=== PATIENT | female | born 1975 | race Caucasian/White ===

== ENCOUNTER 2016-07-27 14:20 | Inpatient (IN) | payer MEDICAID ==
[~2016-07-27] VITALS: Ht 157.5 cm; Wt 158.0 kg
[~2016-07-27 14:20] MED LIST: ALBU8.5H IH; DIVA500T35 PO; GABA-533 PO; GLIM2 PO; LURA40 PO; METF500T4 PO; PRAV40TA3 PO; SERT50TA12 PO; TOPI100 PO
[2016-07-27 16:40] LABS: BASOPHILS % (AUTO) 0.4 % (0.0-2.0); EOSINOPHILS % (AUTO) 1.1 % (1.0-6.0); HEMATOCRIT 46.3 % (36-46); LYMPHOCYTES # (AUTO) 3.2 K/uL (1.0-4.8); LYMPHOCYTES % (AUTO) 46.8 % (22.0-44.0); MEAN CORPUSCULAR HEMOGLOBIN 30.3 pg (26.0-34.0); MEAN CORPUSCULAR HGB CONC 32.4 G/dL (31.0-37.0); MEAN CORPUSCULAR VOLUME 94 fL (80-100); MONOCYTES # (AUTO) 0.3 K/uL (0.1-1.0); MONOCYTES % (AUTO) 4.8 % (2.0-9.0); NEUTROPHILS # (AUTO) 3.2 K/uL (1.8-7.7); NEUTROPHILS % (AUTO) 46.9 % (40.0-70.0); PLATELET COUNT (AUTO) 268 K/uL (150-450); RED BLOOD CELL COUNT(AUTO) 4.94 MIL/uL (4.00-5.20); RED CELL DISTRIBUTION WIDTH 13.8 % (11.5-14.5); WHITE BLOOD COUNT (AUTO) 6.8 K/uL (4.5-11.0)
[2016-07-27 16:54] LABS: ANION GAP 11 mmol/L (8-16); CALCIUM, TOTAL 8.6 mg/dL (8.8-10.5); CARBON DIOXIDE 25 mmol/L (22-29); CHLORIDE 104 mmol/L (98-107); CREATININE 0.85 mg/dL (0.60-1.30); GLOMERULAR FILTR. RATE CALC > 60 mL/min (>60); POTASSIUM 4.1 mmol/L (3.5-5.1); SODIUM SERUM 140 mmol/L (136-145); UREA NITROGEN, BLOOD 11 mg/dL (7-18)
[2016-07-27 16:57] LABS: SALICYLATE 3.5 mg/dL (2.8-20.0)
[2016-07-27 17:01] LABS: ALANINE AMINOTRANSFERASE 20 U/L (12-78); ALBUMIN 3.2 g/dL (3.4-5.0); ASPARTATE AMINOTRANSFERASE 11 U/L (15-37); BILIRUBIN,TOTAL 0.2 mg/dL (0.1-1.0)
[2016-07-27 17:15] LABS: ACETAMINOPHEN < 2 mcg/mL (10-30)
[2016-07-27 17:22] LABS: GLUCOSE,POINT OF CARE 90 MG/DL (70-110)
[2016-07-27 18:17] LABS: GLUCOSE,POINT OF CARE 86 MG/DL (70-110)
[2016-07-27 18:43] LABS: VALPROIC ACID 44 mcg/mL (50-100)
[2016-07-27 19:27] LABS: GLUCOSE,POINT OF CARE 90 MG/DL (70-110)
[2016-07-27 20:19] LABS: VALPROIC ACID 34 mcg/mL (50-100)
[2016-07-27 20:29] LABS: ACETAMINOPHEN < 2 mcg/mL (10-30)
[2016-07-27 20:54] LABS: SALICYLATE 3.8 mg/dL (2.8-20.0)
[2016-07-27 21:29] LABS: ANION GAP 7 mmol/L (8-16); CALCIUM, TOTAL 8.6 mg/dL (8.8-10.5); CARBON DIOXIDE 27 mmol/L (22-29); CHLORIDE 105 mmol/L (98-107); CREATININE 0.92 mg/dL (0.60-1.30); GLOMERULAR FILTR. RATE CALC > 60 mL/min (>60); POTASSIUM 3.9 mmol/L (3.5-5.1); SODIUM SERUM 139 mmol/L (136-145); UREA NITROGEN, BLOOD 13 mg/dL (7-18)
[2016-07-27 21:35] LABS: ALANINE AMINOTRANSFERASE 19 U/L (12-78); ALBUMIN 3.2 g/dL (3.4-5.0); ASPARTATE AMINOTRANSFERASE 11 U/L (15-37); BILIRUBIN,TOTAL 0.2 mg/dL (0.1-1.0); TOTAL PROTEIN, SERUM 6.9 g/dL (6.4-8.2)
[2016-07-27 21:37] LABS: GLUCOSE,POINT OF CARE 90 MG/DL (70-110)
[2016-07-27 21:38] LABS: LACTIC ACID 0.8 mmol/L (0.4-2.0)
[2016-07-27 22:31] LABS: GLUCOSE,POINT OF CARE 88 MG/DL (70-110)
[2016-07-27] MEDS ORDERED: HALOPERIDOL 5 MG TABLET PO PRN (23:15)
[2016-07-27] MEDS ORDERED: ZOLPIDEM TARTRATE 10 MG TABLET PO PRN (23:15)
[2016-07-27] MEDS ORDERED: LORazepam 2 MG TABLET PO PRN (23:15)
[2016-07-28 01:41] LABS: GLUCOSE,POINT OF CARE 96 MG/DL (70-110)
[2016-07-28 02:34] VITALS: BP 122/83
[2016-07-28 08:30] VITALS: BP 125/76
[2016-07-28] MEDS: ACETAMINOPHEN 325 MG TABLET PO PRN (14:00)
[2016-07-28 16:30] VITALS: BP 128/74
[2016-07-28] MEDS: MetFORMIN HCL 500 MG TABLET PO SCH (18:07)
[2016-07-28] MEDS ORDERED: OLANZapine 5 MG TABLET PO SCH (21:00)
[2016-07-28] MEDS: PRAVASTATIN SODIUM 40 MG TABLET PO SCH (21:14)
[2016-07-29 06:49] LABS: HEMOGLOBIN A1C 5.9 % (4.5-6.2)
[2016-07-29] MEDS: MetFORMIN HCL 500 MG TABLET PO SCH ×2 (06:58→17:51)
[2016-07-29] MEDS: GLIMEPIRIDE 2 MG TABLET PO SCH (06:58)
[2016-07-29 08:26] VITALS: BP 156/95
[2016-07-29] MEDS: FLUoxetine HCL 20 MG CAPSULE PO SCH (08:26)
[2016-07-29] MEDS: ACETAMINOPHEN 325 MG TABLET PO PRN ×2 (08:26→16:40)
[2016-07-29 10:15] LABS: CHOL/HDL RATIO 5.6 (3.9-5.7); THYROID STIMULATING HORMONE 2.14 uIU/mL (0.36-3.74)
[2016-07-29 13:32] LABS: GLUCOSE,POINT OF CARE 110 MG/DL (70-110)
[2016-07-29 16:06] LABS: GLUCOSE COMMENT 1 Received Meds; GLUCOSE,POINT OF CARE 115 MG/DL (70-110)
[2016-07-29 16:39] VITALS: BP 135/68
[2016-07-29 16:51] VITALS: BP 133/75
[2016-07-29] MEDS: OLANZapine 10 MG TABLET PO SCH (20:13)
[2016-07-29] MEDS: PRAVASTATIN SODIUM 40 MG TABLET PO SCH (20:13)
[2016-07-30 05:27] LABS: GLUCOSE,POINT OF CARE 103 MG/DL (70-110)
[2016-07-30] MEDS: MetFORMIN HCL 500 MG TABLET PO SCH ×2 (06:46→17:28)
[2016-07-30] MEDS: GLIMEPIRIDE 2 MG TABLET PO SCH (06:47)
[2016-07-30 08:00] VITALS: BP 105/62
[2016-07-30] MEDS: FLUoxetine HCL 20 MG CAPSULE PO SCH (09:40)
[2016-07-30] MEDS: ACETAMINOPHEN 325 MG TABLET PO PRN ×2 (12:04→20:11)
[2016-07-30 16:30] VITALS: BP 136/83
[2016-07-30 16:47] LABS: GLUCOSE COMMENT 1 Received Meds; GLUCOSE,POINT OF CARE 149 MG/DL (70-110)
[2016-07-30] MEDS ORDERED: FLUO-191 PO (18:01)
[2016-07-30] MEDS ORDERED: OLAN10TA3 PO (18:02)
[2016-07-30] MEDS: OLANZapine 10 MG TABLET PO SCH (20:10)
[2016-07-30] MEDS: PRAVASTATIN SODIUM 40 MG TABLET PO SCH (20:10)
[2016-07-30 20:12] VITALS: BP 130/78
[2016-07-31 05:27] LABS: GLUCOSE,POINT OF CARE 120 MG/DL (70-110)
[2016-07-31] MEDS: MetFORMIN HCL 500 MG TABLET PO SCH (07:02)
[2016-07-31] MEDS: GLIMEPIRIDE 2 MG TABLET PO SCH (07:02)
[2016-07-31 08:30] VITALS: BP 129/63
[2016-07-31] MEDS: FLUoxetine HCL 20 MG CAPSULE PO SCH (08:33)
[2016-07-31] MEDS: ACETAMINOPHEN 325 MG TABLET PO PRN (08:33)
== END 2016-07-31 14:45 | disposition home or self-care (01) | DRG 750 ==
LOC: EMS 14:23 → EEVIPCON 14:23 → 3EI 07-28 00:39 → EDUNIT# 07-28 00:39
PROVIDERS: ADMIT Psychiatry & Neurology Psychiatry; ATTEND Psychiatry & Neurology Psychiatry
DX: F25.0 Schizoaffective disorder, bipolar type (principal); R45.851 Suicidal ideations; F15.20 Other stimulant dependence, uncomplicated; Z68.44 Body mass index [BMI] 60.0-69.9, adult; E66.9 Obesity, unspecified; T43.212A Poisoning by selective serotonin and norepinephrine reuptake inhibitors, intentional self-harm, initial encounter; F41.9 Anxiety disorder, unspecified; E11.9 Type 2 diabetes mellitus without complications; F60.3 Borderline personality disorder; F32.9 Major depressive disorder, single episode, unspecified; J44.9 Chronic obstructive pulmonary disease, unspecified; G89.29 Other chronic pain; M54.9 Dorsalgia, unspecified; E78.5 Hyperlipidemia, unspecified; F17.200 Nicotine dependence, unspecified, uncomplicated; Z79.899 Other long term (current) drug therapy; Z59.0 Homelessness; Z88.2 Allergy status to sulfonamides; Z88.6 Allergy status to analgesic agent; Z62.819 Personal history of unspecified abuse in childhood; Y93.89 Activity, other specified; Y92.89 Other specified places as the place of occurrence of the external cause; Y99.8 Other external cause status; Z71.51 Drug abuse counseling and surveillance of drug abuser
CPT/HCPCS: 82962; 83036; 83605; 84443; 93005; 99285; G0480; G0481

== ENCOUNTER 2016-12-31 10:09 | Inpatient (IN) | payer MEDICAID, OTHER ==
[~2016-12-31] VITALS: Ht 167.6 cm; Wt 166.4 kg
[~2016-12-31 10:09] MED LIST changes: -ALBU8.5H IH; -DIVA500T35 PO; +FLUO-191 PO; -GABA-533 PO; -LURA40 PO; +OLAN10TA3 PO; -SERT50TA12 PO; -TOPI100 PO
[2016-12-31 10:53] LABS: BASOPHILS % (AUTO) 0.6 % (0.0-2.0); EOSINOPHILS % (AUTO) 0.9 % (1.0-6.0); HEMOGLOBIN 15.6 g/dL (12.0-16.0); LYMPHOCYTES # (AUTO) 2.6 K/uL (1.0-4.8); LYMPHOCYTES % (AUTO) 34.8 % (22.0-44.0); MEAN CORPUSCULAR HEMOGLOBIN 30.8 pg (26.0-34.0); MEAN CORPUSCULAR HGB CONC 33.9 G/dL (31.0-37.0); MEAN CORPUSCULAR VOLUME 91 fL (80-100); MONOCYTES # (AUTO) 0.5 K/uL (0.1-1.0); MONOCYTES % (AUTO) 6.2 % (2.0-9.0); NEUTROPHILS # (AUTO) 4.4 K/uL (1.8-7.7); NEUTROPHILS % (AUTO) 57.5 % (40.0-70.0); PLATELET COUNT (AUTO) 258 K/uL (150-450); RED BLOOD CELL COUNT(AUTO) 5.06 MIL/uL (4.00-5.20); RED CELL DISTRIBUTION WIDTH 13.4 % (11.5-14.5); WHITE BLOOD COUNT (AUTO) 7.6 K/uL (4.5-11.0)
[2016-12-31 11:07] LABS: SALICYLATE 3.9 mg/dL (2.8-20.0)
[2016-12-31 11:08] LABS: ANION GAP 11 mmol/L (8-16); CALCIUM, TOTAL 8.8 mg/dL (8.8-10.5); CARBON DIOXIDE 24 mmol/L (22-29); CHLORIDE 102 mmol/L (98-107); CREATININE 0.76 mg/dL (0.60-1.30); GLOMERULAR FILTR. RATE CALC > 60 mL/min (>60); POTASSIUM 3.8 mmol/L (3.5-5.1); SODIUM SERUM 137 mmol/L (136-145); UREA NITROGEN, BLOOD 13 mg/dL (7-18)
[2016-12-31 11:11] LABS: APPEARANCE,URINE CLOUDY (CLEAR); GLUCOSE, URINE (UA) NEGATIVE (NEGATIVE); KETONES,URINE NEGATIVE (NEGATIVE); LEUKOCYTE ESTERASE ,URINE NEGATIVE (NEGATIVE); OCCULT BLOOD,URINE NEGATIVE (NEGATIVE); PROTEIN,URINE TRACE (NEGATIVE)
[2016-12-31 11:14] LABS: ALANINE AMINOTRANSFERASE 29 U/L (12-78); ALBUMIN 3.3 g/dL (3.4-5.0); ASPARTATE AMINOTRANSFERASE 14 U/L (15-37); BILIRUBIN,TOTAL 0.5 mg/dL (0.1-1.0); TOTAL PROTEIN, SERUM 7.1 g/dL (6.4-8.2)
[2016-12-31 11:26] LABS: RBC,URINE 0-2 /HPF (0-2); SQUAMOUS EPITHELIAL CELL,UR Few /LPF (None Seen); WBC,URINE 0-2 /HPF (0-5)
[2016-12-31 11:33] LABS: ACETAMINOPHEN < 2 mcg/mL (10-30)
[2016-12-31 13:53] LABS: SALICYLATE 3.6 mg/dL (2.8-20.0)
[2016-12-31 14:10] LABS: ACETAMINOPHEN < 2 mcg/mL (10-30)
[2016-12-31] MEDS ORDERED: ZOLPIDEM TARTRATE 10 MG TABLET PO PRN (16:15)
[2016-12-31 19:23] LABS: GLUCOSE,POINT OF CARE 191 MG/DL (70-110)
[2016-12-31] MEDS ORDERED: DEXTROSE 50%-WATER 25 GM/50 ML SYRINGE IVP PRN (20:00)
[2016-12-31] MEDS ORDERED: PRAVASTATIN SODIUM 40 MG TABLET PO SCH (21:00)
[2016-12-31 21:52] VITALS: BP 135/76
[2017-01-01 05:27] LABS: GLUCOSE,POINT OF CARE 144 MG/DL (70-110)
[2017-01-01] MEDS: MetFORMIN HCL 500 MG TABLET PO SCH ×2 (06:49→16:39)
[2017-01-01] MEDS: INSULIN ASPART 100 UNITS/ML SQ PRN (06:50)
[2017-01-01 07:08] LABS: HEMOGLOBIN A1C 7.2 % (4.5-6.2)
[2017-01-01 07:22] LABS: CHOL/HDL RATIO 5.5 (3.9-5.7); THYROID STIMULATING HORMONE 2.04 uIU/mL (0.36-3.74)
[2017-01-01] MEDS ORDERED: GLIMEPIRIDE 2 MG TABLET PO SCH (07:30)
[2017-01-01 08:15] VITALS: BP 149/71
[2017-01-01] MEDS: TOPIRAMATE 100 MG TABLET PO SCH (16:38)
[2017-01-01] MEDS: ClonazePAM 0.5 MG TABLET PO SCH (16:39)
[2017-01-01] MEDS: DIVALPROEX SODIUM 500 MG DR TABLET PO SCH (16:39)
[2017-01-01 16:47] LABS: GLUCOSE COMMENT 1 FASTING; GLUCOSE COMMENT 2 Received Meds; GLUCOSE,POINT OF CARE 139 MG/DL (70-110)
[2017-01-01 18:41] VITALS: BP 135/77
[2017-01-01] MEDS: ROSUVASTATIN CALCIUM 10 MG TABLET PO SCH (20:24)
[2017-01-02 05:44] LABS: GLUCOSE COMMENT 1 Received Meds; GLUCOSE,POINT OF CARE 150 MG/DL (70-110)
[2017-01-02] MEDS: INSULIN ASPART 100 UNITS/ML SQ PRN (06:35)
[2017-01-02] MEDS: GLIMEPIRIDE 2 MG TABLET PO SCH (06:52)
[2017-01-02] MEDS: MetFORMIN HCL 500 MG TABLET PO SCH ×2 (06:52→17:14)
[2017-01-02 08:39] VITALS: BP 122/70
[2017-01-02] MEDS: ClonazePAM 0.5 MG TABLET PO SCH ×2 (10:07→17:14)
[2017-01-02] MEDS: DIVALPROEX SODIUM 500 MG DR TABLET PO SCH ×2 (10:07→17:14)
[2017-01-02] MEDS: CHOLECALCIFEROL (VIT D3) 1,000 UNITS TABLET PO SCH (10:07)
[2017-01-02] MEDS: SERTRALINE HCL 50 MG TABLET PO SCH (10:07)
[2017-01-02] MEDS: TOPIRAMATE 100 MG TABLET PO SCH ×2 (10:08→17:14)
[2017-01-02 16:21] VITALS: BP 139/66
[2017-01-02 17:28] LABS: GLUCOSE COMMENT 1 FASTING; GLUCOSE COMMENT 2 Received Meds; GLUCOSE,POINT OF CARE 116 MG/DL (70-110)
[2017-01-02] MEDS: ROSUVASTATIN CALCIUM 10 MG TABLET PO SCH (20:03)
[2017-01-03 05:27] LABS: GLUCOSE,POINT OF CARE 124 MG/DL (70-110)
[2017-01-03] MEDS: GLIMEPIRIDE 2 MG TABLET PO SCH (07:00)
[2017-01-03] MEDS: MetFORMIN HCL 500 MG TABLET PO SCH ×2 (07:00→17:33)
[2017-01-03] MEDS: INSULIN ASPART 100 UNITS/ML SQ PRN (07:04)
[2017-01-03 08:30] VITALS: BP 126/74
[2017-01-03] MEDS: ALBUTEROL SULFATE HFA 90 MCG/PUFF 8 GM INHALER IH PRN (09:18)
[2017-01-03] MEDS: CHOLECALCIFEROL (VIT D3) 1,000 UNITS TABLET PO SCH (09:19)
[2017-01-03] MEDS: TOPIRAMATE 100 MG TABLET PO SCH ×2 (09:19→17:34)
[2017-01-03] MEDS: SERTRALINE HCL 50 MG TABLET PO SCH (09:19)
[2017-01-03] MEDS: ClonazePAM 0.5 MG TABLET PO SCH ×2 (09:19→17:33)
[2017-01-03] MEDS: LORazepam 2 MG TABLET PO PRN (09:19)
[2017-01-03] MEDS: DIVALPROEX SODIUM 500 MG DR TABLET PO SCH ×2 (09:19→17:33)
[2017-01-03] MEDS: HALOPERIDOL 5 MG TABLET PO PRN (09:19)
[2017-01-03 16:24] VITALS: BP 128/82
[2017-01-03 17:17] LABS: GLUCOSE,POINT OF CARE 126 MG/DL (70-110)
[2017-01-03] MEDS: ROSUVASTATIN CALCIUM 10 MG TABLET PO SCH (21:08)
[2017-01-04 05:48] LABS: GLUCOSE,POINT OF CARE 132 MG/DL (70-110)
[2017-01-04] MEDS: MetFORMIN HCL 500 MG TABLET PO SCH ×2 (06:53→17:35)
[2017-01-04] MEDS: GLIMEPIRIDE 2 MG TABLET PO SCH (06:53)
[2017-01-04] MEDS: INSULIN ASPART 100 UNITS/ML SQ PRN (06:54)
[2017-01-04 08:15] VITALS: BP 110/60
[2017-01-04] MEDS: LORazepam 2 MG TABLET PO PRN (08:37)
[2017-01-04] MEDS: DIVALPROEX SODIUM 500 MG DR TABLET PO SCH ×2 (08:37→17:35)
[2017-01-04] MEDS: CHOLECALCIFEROL (VIT D3) 1,000 UNITS TABLET PO SCH (08:37)
[2017-01-04] MEDS: HALOPERIDOL 5 MG TABLET PO PRN (08:37)
[2017-01-04] MEDS: SERTRALINE HCL 50 MG TABLET PO SCH (08:37)
[2017-01-04] MEDS: TOPIRAMATE 100 MG TABLET PO SCH ×2 (08:38→17:35)
[2017-01-04] MEDS: ClonazePAM 0.5 MG TABLET PO SCH ×2 (09:52→17:35)
[2017-01-04 16:29] VITALS: BP 124/72
[2017-01-04 18:23] LABS: GLUCOSE,POINT OF CARE 119 MG/DL (70-110)
[2017-01-04] MEDS: ROSUVASTATIN CALCIUM 10 MG TABLET PO SCH (20:45)
[2017-01-05 05:30] VITALS: BP 129/89
[2017-01-05] MEDS: LORazepam 2 MG TABLET PO PRN ×3 (05:33→19:57)
[2017-01-05 05:52] LABS: GLUCOSE,POINT OF CARE 118 MG/DL (70-110)
[2017-01-05] MEDS: MetFORMIN HCL 500 MG TABLET PO SCH ×2 (07:05→16:58)
[2017-01-05] MEDS: GLIMEPIRIDE 2 MG TABLET PO SCH (07:05)
[2017-01-05] MEDS: INSULIN ASPART 100 UNITS/ML SQ PRN (07:08)
[2017-01-05] MEDS: NICOTINE 21 MG/24 HOUR PATCH TD SCH (08:43)
[2017-01-05] MEDS: TOPIRAMATE 100 MG TABLET PO SCH ×2 (08:43→16:23)
[2017-01-05] MEDS: ALBUTEROL SULFATE HFA 90 MCG/PUFF 8 GM INHALER IH PRN (08:43)
[2017-01-05] MEDS: SERTRALINE HCL 50 MG TABLET PO SCH (08:44)
[2017-01-05] MEDS: ClonazePAM 0.5 MG TABLET PO SCH ×2 (08:44→16:23)
[2017-01-05] MEDS: DIVALPROEX SODIUM 500 MG DR TABLET PO SCH ×2 (08:44→16:23)
[2017-01-05] MEDS: CHOLECALCIFEROL (VIT D3) 1,000 UNITS TABLET PO SCH (08:48)
[2017-01-05] MEDS: HALOPERIDOL 5 MG TABLET PO PRN ×2 (09:41→19:57)
[2017-01-05 13:14] VITALS: BP 124/82
[2017-01-05 16:34] VITALS: BP 112/85
[2017-01-05] MEDS ORDERED: ACETAMINOPHEN 325 MG TABLET PO PRN (19:15)
[2017-01-05] MEDS: ROSUVASTATIN CALCIUM 10 MG TABLET PO SCH (20:20)
[2017-01-06 05:57] LABS: GLUCOSE,POINT OF CARE 131 MG/DL (70-110)
[2017-01-06] MEDS: GLIMEPIRIDE 2 MG TABLET PO SCH (07:03)
[2017-01-06] MEDS: MetFORMIN HCL 500 MG TABLET PO SCH ×2 (07:04→18:03)
[2017-01-06] MEDS: SERTRALINE HCL 50 MG TABLET PO SCH (09:25)
[2017-01-06] MEDS: ClonazePAM 0.5 MG TABLET PO SCH ×2 (09:25→18:03)
[2017-01-06] MEDS: DIVALPROEX SODIUM 500 MG DR TABLET PO SCH ×2 (09:25→18:03)
[2017-01-06] MEDS: TOPIRAMATE 100 MG TABLET PO SCH ×2 (09:25→18:03)
[2017-01-06] MEDS: NICOTINE 21 MG/24 HOUR PATCH TD SCH (09:26)
[2017-01-06] MEDS: CHOLECALCIFEROL (VIT D3) 1,000 UNITS TABLET PO SCH (09:26)
[2017-01-06] MEDS: HALOPERIDOL 5 MG TABLET PO PRN (09:47)
[2017-01-06] MEDS: LORazepam 2 MG TABLET PO PRN (09:47)
[2017-01-06 11:20] VITALS: BP 114/65
[2017-01-06 17:07] VITALS: BP 119/74
[2017-01-06] MEDS: ROSUVASTATIN CALCIUM 10 MG TABLET PO SCH (21:32)
[2017-01-07] MEDS: LORazepam 2 MG TABLET PO PRN ×2 (01:50→10:46)
[2017-01-07 01:56] VITALS: BP 118/78
[2017-01-07 05:39] LABS: GLUCOSE COMMENT 1 Received Meds; GLUCOSE,POINT OF CARE 116 MG/DL (70-110)
[2017-01-07] MEDS: GLIMEPIRIDE 2 MG TABLET PO SCH (06:57)
[2017-01-07] MEDS: MetFORMIN HCL 500 MG TABLET PO SCH (06:58)
[2017-01-07] MEDS: INSULIN ASPART 100 UNITS/ML SQ PRN (07:02)
[2017-01-07 09:32] VITALS: BP 145/96
[2017-01-07] MEDS: DIVALPROEX SODIUM 500 MG DR TABLET PO SCH (10:46)
[2017-01-07] MEDS: ClonazePAM 0.5 MG TABLET PO SCH (10:46)
[2017-01-07] MEDS: NICOTINE 21 MG/24 HOUR PATCH TD SCH (10:46)
[2017-01-07] MEDS: TOPIRAMATE 100 MG TABLET PO SCH (10:47)
[2017-01-07] MEDS: SERTRALINE HCL 50 MG TABLET PO SCH (10:47)
[2017-01-07] MEDS: HALOPERIDOL 5 MG TABLET PO PRN (10:47)
[2017-01-07] MEDS: CHOLECALCIFEROL (VIT D3) 1,000 UNITS TABLET PO SCH (10:47)
[2017-01-07] MEDS: ALBUTEROL SULFATE HFA 90 MCG/PUFF 8 GM INHALER IH PRN (10:50)
[2017-01-07] MEDS ORDERED: DIVA500T35 PO (11:35)
[2017-01-07] MEDS ORDERED: VITAD1000 PO (11:35)
[2017-01-07] MEDS ORDERED: SERT50TA12 PO (11:35)
[2017-01-07] MEDS ORDERED: CLON.5 PO (11:35)
[2017-01-07] MEDS ORDERED: ROSU10 PO (11:35)
== END 2017-01-07 15:30 | disposition home or self-care (01) | DRG 750 ==
LOC: EMS 10:11 → 3EI 17:08
PROVIDERS: ADMIT Psychiatry & Neurology Psychiatry; ATTEND Psychiatry & Neurology Psychiatry
DX: F25.9 Schizoaffective disorder, unspecified (principal); R45.851 Suicidal ideations; Z68.43 Body mass index [BMI] 50.0-59.9, adult; E11.9 Type 2 diabetes mellitus without complications; E55.9 Vitamin D deficiency, unspecified; E78.00 Pure hypercholesterolemia, unspecified; E78.5 Hyperlipidemia, unspecified; E66.9 Obesity, unspecified; R26.9 Unspecified abnormalities of gait and mobility; T42.6X2A Poisoning by other antiepileptic and sedative-hypnotic drugs, intentional self-harm, initial encounter; Y92.89 Other specified places as the place of occurrence of the external cause; Z88.3 Allergy status to other anti-infective agents; Z88.2 Allergy status to sulfonamides
CPT/HCPCS: 51702; 74000; 82306; 82962; 83036; 84443; 93005; 99285; G0480; G0481; J3535

== ENCOUNTER 2018-10-20 18:30 | Inpatient (IN) | payer SELFPAY ==
[~2018-10-20] VITALS: Ht 170.2 cm; Wt 165.6 kg
[~2018-10-20 18:30] MED LIST changes: +CLON.5 PO; +DIVA-78 PO; -FLUO-191 PO; +METF-444 PO; -METF500T4 PO; -OLAN10TA3 PO; -PRAV40TA3 PO; +ROSU10TA22 PO; +SERT50TA12 PO; +VITAD1000 PO
[2018-10-20] MEDS ORDERED: ALBU8HFA IH (19:59)
[2018-10-20] MEDS ORDERED: LISI-660 PO (19:59)
[2018-10-20] MEDS ORDERED: ZIPR40CA2 PO (19:59)
[2018-10-20] MEDS ORDERED: VENL-67 PO (19:59)
[2018-10-20] MEDS ORDERED: ATOR10TA84 PO (19:59)
[2018-10-20 20:05] LABS: GLUCOSE,POINT OF CARE 132 MG/DL (70-110)
[2018-10-20 20:31] LABS: BASOPHILS % (AUTO) 0.5 % (0.0-2.0); EOSINOPHILS % (AUTO) 0.4 % (1.0-6.0); HEMATOCRIT 45.2 % (36-46); HEMOGLOBIN 14.9 g/dL (12.0-16.0); LYMPHOCYTES # (AUTO) 2.1 K/uL (1.0-4.8); LYMPHOCYTES % (AUTO) 22.2 % (22.0-44.0); MEAN CORPUSCULAR HEMOGLOBIN 30.2 pg (26.0-34.0); MEAN CORPUSCULAR HGB CONC 32.9 G/dL (31.0-37.0); MEAN CORPUSCULAR VOLUME 92 fL (80-100); MONOCYTES # (AUTO) 0.6 K/uL (0.1-1.0); NEUTROPHILS # (AUTO) 6.6 K/uL (1.8-7.7); NEUTROPHILS % (AUTO) 70.9 % (40.0-70.0); PLATELET COUNT (AUTO) 265 K/uL (150-450); RED BLOOD CELL COUNT(AUTO) 4.93 MIL/uL (4.00-5.20); RED CELL DISTRIBUTION WIDTH 13.1 % (11.5-14.5)
[2018-10-20] MEDS ORDERED: HYDROCODONE/ACETAMINOPHEN 10-325 MG TABLET PO ONE (20:45)
[2018-10-20] MEDS ORDERED: LORazepam 2 MG TABLET PO ONE (20:45)
[2018-10-20 20:46] LABS: ANION GAP 9 mmol/L (8-16); CALCIUM, TOTAL 9.9 mg/dL (8.8-10.5); CARBON DIOXIDE 26 mmol/L (22-29); CHLORIDE 101 mmol/L (98-107); CREATININE 0.98 mg/dL (0.60-1.30); GLOMERULAR FILTR. RATE CALC > 60 mL/min (>60); GLUCOSE,RANDOM 139 mg/dL (70-110); POTASSIUM 4.5 mmol/L (3.5-5.1); SODIUM SERUM 136 mmol/L (136-145); UREA NITROGEN, BLOOD 24 mg/dL (7-18)
[2018-10-20 20:51] LABS: ALANINE AMINOTRANSFERASE 27 U/L (12-78); ALBUMIN 3.8 g/dL (3.4-5.0); ALKALINE PHOSPHATASE 108 U/L (46-116); ASPARTATE AMINOTRANSFERASE 13 U/L (15-37); BILIRUBIN,TOTAL 0.3 mg/dL (0.1-1.0); TOTAL PROTEIN, SERUM 8.1 g/dL (6.4-8.2)
[2018-10-20 21:48] LABS: CHOL/HDL RATIO 3.9 (3.9-5.7); CHOLESTEROL 167 mg/dL (131-200); FREE T4 (FREE THYROXINE) 1.24 ng/dL (0.76-1.46); HDL CHOLESTEROL 43 mg/dL (40-60); LDL CHOL (CALC.) 107 mg/dL (0-130); THYROID STIMULATING HORMONE 1.22 uIU/mL (0.36-3.74); TRIGLYCERIDES 86 mg/dL (15-150)
[2018-10-20 22:29] LABS: AMPHET/METH SCREEN,URINE NEGATIVE (NEGATIVE); BARBITURATE SCREEN, URINE NEGATIVE (NEGATIVE); BENZODIAZEPINES SCREEN,URINE NEGATIVE (NEGATIVE); CANNABINOID SCREEN,URINE NEGATIVE (NEGATIVE); COCAINE SCREEN,URINE NEGATIVE (NEGATIVE); METHADONE SCREEN, URINE NEGATIVE (NEGATIVE); OPIATE SCREEN,URINE NEGATIVE (NEGATIVE)
[2018-10-20 22:30] LABS: PHENCYCLIDINE SCREEN,URINE NEGATIVE (NEGATIVE)
[2018-10-21 03:10] VITALS: BP 125/66
[2018-10-21] MEDS ORDERED: -PHARMACY VACCINE NOTE- MISC ONE (04:45)
[2018-10-21] MEDS: LORazepam 2 MG TABLET PO PRN ×2 (05:23→14:13)
[2018-10-21] MEDS ORDERED: LOPERAMIDE HCL 2 MG CAPSULE PO PRN (08:00)
[2018-10-21] MEDS ORDERED: BENZOCAINE/MENTHOL LOZENGE MM PRN (08:00)
[2018-10-21] MEDS ORDERED: DOCUSATE SODIUM 100 MG CAPSULE PO PRN (08:00)
[2018-10-21] MEDS ORDERED: MAG HYDROX/AL HYDROX/SIMETH ES 30 ML SUSPENSION UDCUP PO PRN (08:00)
[2018-10-21] MEDS ORDERED: CloNIDine HCL 0.1 MG TABLET PO PRN (08:00)
[2018-10-21] MEDS ORDERED: OMEPRAZOLE 20 MG CAPSULE PO PRN (08:00)
[2018-10-21] MEDS ORDERED: PETROLATUM,WHITE 28 GM JELLY TP PRN (08:00)
[2018-10-21] MEDS ORDERED: MAGNESIUM HYDROXIDE SUSPENSION 30 ML UDCUP PO PRN (08:00)
[2018-10-21] MEDS ORDERED: ONDANSETRON HCL 4 MG TABLET PO PRN (08:00)
[2018-10-21] MEDS ORDERED: BACITRACIN 28.4 GM OINTMENT TP PRN (08:00)
[2018-10-21] MEDS: LISINOPRIL 5 MG TABLET PO SCH (08:09)
[2018-10-21] MEDS: HALOPERIDOL 5 MG TABLET PO PRN ×2 (08:09→14:13)
[2018-10-21] MEDS: ATORVASTATIN CALCIUM 10 MG TABLET PO SCH (08:10)
[2018-10-21] MEDS: CHOLECALCIFEROL (VIT D3) 1,000 UNITS TABLET PO SCH (08:10)
[2018-10-21 08:22] VITALS: BP 136/79
[2018-10-21] MEDS: ALBUTEROL SULFATE HFA 90 MCG/PUFF 8 GM INHALER IH PRN (08:23)
[2018-10-21] MEDS: ZIPRASIDONE HCL 40 MG CAPSULE PO SCH (17:01)
[2018-10-21] MEDS: DIVALPROEX SODIUM 500 MG ER TABLET PO SCH (17:01)
[2018-10-21] MEDS: MetFORMIN HCL 500 MG TABLET PO SCH (17:01)
[2018-10-21] MEDS ORDERED: DEXTROSE 50%-WATER 25 GM/50 ML SYRINGE IVP PRN (20:15)
[2018-10-21 20:45] VITALS: BP 101/68
[2018-10-22 03:10] VITALS: BP 122/71
[2018-10-22] MEDS: LORazepam 2 MG TABLET PO PRN ×4 (03:12→19:07)
[2018-10-22 06:10] LABS: GLUCOMETER DEV NAME(LOC) 3E.I; GLUCOSE,POINT OF CARE 123 MG/DL (70-110)
[2018-10-22] MEDS: INSULIN LISPRO 100 UNITS/ML SQ PRN ×2 (06:39→13:36)
[2018-10-22] MEDS: ZIPRASIDONE HCL 40 MG CAPSULE PO SCH ×2 (07:02→17:09)
[2018-10-22] MEDS: MetFORMIN HCL 500 MG TABLET PO SCH ×2 (07:02→17:10)
[2018-10-22 08:00] VITALS: BP 133/90
[2018-10-22] MEDS: LISINOPRIL 5 MG TABLET PO SCH (08:03)
[2018-10-22] MEDS: CHOLECALCIFEROL (VIT D3) 1,000 UNITS TABLET PO SCH (08:03)
[2018-10-22] MEDS: SERTRALINE HCL 50 MG TABLET PO SCH (08:03)
[2018-10-22] MEDS: ALBUTEROL SULFATE HFA 90 MCG/PUFF 8 GM INHALER IH PRN (08:03)
[2018-10-22] MEDS: HALOPERIDOL 5 MG TABLET PO PRN ×3 (08:03→19:07)
[2018-10-22] MEDS: ATORVASTATIN CALCIUM 10 MG TABLET PO SCH (08:04)
[2018-10-22] MEDS: DIVALPROEX SODIUM 500 MG ER TABLET PO SCH ×2 (08:04→17:10)
[2018-10-22 11:34] LABS: GLUCOMETER DEV NAME(LOC) 3E.I; GLUCOSE,POINT OF CARE 115 MG/DL (70-110)
[2018-10-22 16:29] VITALS: BP 109/64
[2018-10-22 17:20] LABS: GLUCOMETER DEV NAME(LOC) 3E.I; GLUCOSE,POINT OF CARE 134 MG/DL (70-110)
[2018-10-22] MEDS: GABAPENTIN 300 MG CAPSULE PO SCH (18:48)
[2018-10-22] MEDS: NICOTINE 21 MG/24 HOUR PATCH TD SCH (18:48)
[2018-10-23 03:11] VITALS: BP 121/75
[2018-10-23] MEDS: HALOPERIDOL 5 MG TABLET PO PRN ×2 (03:14→12:55)
[2018-10-23] MEDS: LORazepam 2 MG TABLET PO PRN ×3 (03:14→12:55)
[2018-10-23 05:44] LABS: GLUCOMETER DEV NAME(LOC) 3E.I; GLUCOSE,POINT OF CARE 122 MG/DL (70-110)
[2018-10-23] MEDS: ZIPRASIDONE HCL 40 MG CAPSULE PO SCH ×2 (07:09→17:15)
[2018-10-23] MEDS: MetFORMIN HCL 500 MG TABLET PO SCH ×2 (07:09→17:15)
[2018-10-23] MEDS: ATORVASTATIN CALCIUM 10 MG TABLET PO SCH (08:23)
[2018-10-23] MEDS: SERTRALINE HCL 50 MG TABLET PO SCH (08:23)
[2018-10-23] MEDS: LISINOPRIL 5 MG TABLET PO SCH (08:23)
[2018-10-23] MEDS: CHOLECALCIFEROL (VIT D3) 1,000 UNITS TABLET PO SCH (08:23)
[2018-10-23] MEDS: GABAPENTIN 300 MG CAPSULE PO SCH ×3 (08:24→17:15)
[2018-10-23] MEDS: NICOTINE 21 MG/24 HOUR PATCH TD SCH (08:26)
[2018-10-23] MEDS: DIVALPROEX SODIUM 500 MG ER TABLET PO SCH ×2 (08:26→17:15)
[2018-10-23] MEDS: ACETAMINOPHEN 325 MG TABLET PO PRN (08:37)
[2018-10-23 08:38] VITALS: BP 108/71
[2018-10-23 12:09] LABS: GLUCOMETER DEV NAME(LOC) 3E.I; GLUCOSE,POINT OF CARE 88 MG/DL (70-110)
[2018-10-23 16:35] LABS: GLUCOMETER DEV NAME(LOC) 3E.I; GLUCOSE,POINT OF CARE 167 MG/DL (70-110)
[2018-10-23 17:00] VITALS: BP 130/72
[2018-10-23] MEDS: INSULIN LISPRO 100 UNITS/ML SQ PRN (17:35)
[2018-10-24] MEDS: HALOPERIDOL 5 MG TABLET PO PRN ×3 (01:51→17:01)
[2018-10-24] MEDS: LORazepam 2 MG TABLET PO PRN ×3 (01:51→16:24)
[2018-10-24 01:55] VITALS: BP 109/73
[2018-10-24] MEDS: ACETAMINOPHEN 325 MG TABLET PO PRN (01:56)
[2018-10-24 06:10] LABS: GLUCOMETER DEV NAME(LOC) 3E.I; GLUCOSE,POINT OF CARE 105 MG/DL (70-110)
[2018-10-24] MEDS: ZIPRASIDONE HCL 40 MG CAPSULE PO SCH ×2 (07:07→16:59)
[2018-10-24] MEDS: MetFORMIN HCL 500 MG TABLET PO SCH ×2 (07:07→16:59)
[2018-10-24] MEDS: ATORVASTATIN CALCIUM 10 MG TABLET PO SCH (09:54)
[2018-10-24] MEDS: SERTRALINE HCL 50 MG TABLET PO SCH (09:54)
[2018-10-24] MEDS: GABAPENTIN 300 MG CAPSULE PO SCH ×3 (09:54→16:25)
[2018-10-24] MEDS: CHOLECALCIFEROL (VIT D3) 1,000 UNITS TABLET PO SCH (09:54)
[2018-10-24] MEDS: DIVALPROEX SODIUM 500 MG ER TABLET PO SCH ×2 (09:54→16:25)
[2018-10-24] MEDS: LISINOPRIL 5 MG TABLET PO SCH (09:54)
[2018-10-24] MEDS: NICOTINE 21 MG/24 HOUR PATCH TD SCH (09:59)
[2018-10-24 11:34] LABS: GLUCOMETER DEV NAME(LOC) 3E.I; GLUCOSE,POINT OF CARE 164 MG/DL (70-110)
[2018-10-24] MEDS: INSULIN LISPRO 100 UNITS/ML SQ PRN (11:39)
[2018-10-24 17:10] LABS: GLUCOMETER DEV NAME(LOC) 3E.I; GLUCOSE,POINT OF CARE 115 MG/DL (70-110)
[2018-10-24 17:52] VITALS: BP 110/76
[2018-10-24 21:57] LABS: GLUCOMETER DEV NAME(LOC) 3E.I; GLUCOSE,POINT OF CARE 137 MG/DL (70-110)
[2018-10-25 00:23] VITALS: BP 127/84
[2018-10-25] MEDS: LORazepam 2 MG TABLET PO PRN ×4 (00:23→18:27)
[2018-10-25] MEDS: ACETAMINOPHEN 325 MG TABLET PO PRN (00:23)
[2018-10-25] MEDS: HALOPERIDOL 5 MG TABLET PO PRN ×4 (00:23→21:12)
[2018-10-25 05:50] LABS: GLUCOMETER DEV NAME(LOC) 3E.I; GLUCOSE,POINT OF CARE 132 MG/DL (70-110)
[2018-10-25] MEDS: ZIPRASIDONE HCL 40 MG CAPSULE PO SCH ×2 (06:57→16:57)
[2018-10-25] MEDS: MetFORMIN HCL 500 MG TABLET PO SCH ×2 (06:58→16:56)
[2018-10-25] MEDS: CHOLECALCIFEROL (VIT D3) 1,000 UNITS TABLET PO SCH (09:44)
[2018-10-25] MEDS: ATORVASTATIN CALCIUM 10 MG TABLET PO SCH (09:44)
[2018-10-25] MEDS: LISINOPRIL 5 MG TABLET PO SCH (09:44)
[2018-10-25] MEDS: SERTRALINE HCL 50 MG TABLET PO SCH (09:44)
[2018-10-25] MEDS: DIVALPROEX SODIUM 500 MG ER TABLET PO SCH ×2 (09:44→16:57)
[2018-10-25] MEDS: GABAPENTIN 300 MG CAPSULE PO SCH ×3 (09:45→16:56)
[2018-10-25] MEDS: NICOTINE 21 MG/24 HOUR PATCH TD SCH (09:51)
[2018-10-25 11:30] LABS: GLUCOMETER DEV NAME(LOC) 3E.I; GLUCOSE,POINT OF CARE 126 MG/DL (70-110)
[2018-10-25] MEDS: INSULIN LISPRO 100 UNITS/ML SQ PRN (11:34)
[2018-10-25 12:54] VITALS: BP 113/67
[2018-10-25 21:54] VITALS: BP 108/78
[2018-10-25 22:20] LABS: GLUCOMETER DEV NAME(LOC) 3E.I; GLUCOSE,POINT OF CARE 131 MG/DL (70-110)
[2018-10-26 02:50] VITALS: BP 134/84
[2018-10-26] MEDS: LORazepam 2 MG TABLET PO PRN ×3 (03:02→17:35)
[2018-10-26] MEDS: HALOPERIDOL 5 MG TABLET PO PRN ×2 (03:02→10:52)
[2018-10-26 06:20] LABS: GLUCOMETER DEV NAME(LOC) 3E.I; GLUCOSE,POINT OF CARE 103 MG/DL (70-110)
[2018-10-26] MEDS: MetFORMIN HCL 500 MG TABLET PO SCH ×2 (06:52→17:35)
[2018-10-26] MEDS: ZIPRASIDONE HCL 40 MG CAPSULE PO SCH ×2 (06:52→17:36)
[2018-10-26 09:30] VITALS: BP 110/67
[2018-10-26] MEDS: ATORVASTATIN CALCIUM 10 MG TABLET PO SCH (10:52)
[2018-10-26] MEDS: ALBUTEROL SULFATE HFA 90 MCG/PUFF 8 GM INHALER IH PRN (10:52)
[2018-10-26] MEDS: LISINOPRIL 5 MG TABLET PO SCH (10:52)
[2018-10-26] MEDS: CHOLECALCIFEROL (VIT D3) 1,000 UNITS TABLET PO SCH (10:52)
[2018-10-26] MEDS: GABAPENTIN 300 MG CAPSULE PO SCH ×3 (10:52→17:34)
[2018-10-26] MEDS: SERTRALINE HCL 50 MG TABLET PO SCH (10:53)
[2018-10-26] MEDS: NICOTINE 21 MG/24 HOUR PATCH TD SCH (10:53)
[2018-10-26] MEDS: DIVALPROEX SODIUM 500 MG ER TABLET PO SCH ×2 (10:54→17:35)
[2018-10-26 11:40] LABS: GLUCOMETER DEV NAME(LOC) 3E.I; GLUCOSE,POINT OF CARE 130 MG/DL (70-110)
[2018-10-26] MEDS: INSULIN LISPRO 100 UNITS/ML SQ PRN (11:44)
[2018-10-26 17:19] LABS: GLUCOMETER DEV NAME(LOC) 3E.I; GLUCOSE,POINT OF CARE 115 MG/DL (70-110)
[2018-10-26 17:47] VITALS: BP 140/68
[2018-10-26] MEDS: ZOLPIDEM TARTRATE 10 MG TABLET PO PRN (20:33)
[2018-10-26 20:39] LABS: GLUCOMETER DEV NAME(LOC) 3E.I; GLUCOSE,POINT OF CARE 95 MG/DL (70-110)
[2018-10-27 02:36] VITALS: BP 157/87
[2018-10-27] MEDS: LORazepam 2 MG TABLET PO PRN ×4 (02:40→22:44)
[2018-10-27] MEDS: HALOPERIDOL 5 MG TABLET PO PRN ×3 (02:40→13:24)
[2018-10-27 06:55] LABS: GLUCOMETER DEV NAME(LOC) 3E.I; GLUCOSE,POINT OF CARE 148 MG/DL (70-110)
[2018-10-27] MEDS: MetFORMIN HCL 500 MG TABLET PO SCH ×2 (07:05→17:01)
[2018-10-27] MEDS: ZIPRASIDONE HCL 40 MG CAPSULE PO SCH ×2 (07:05→17:01)
[2018-10-27] MEDS: INSULIN LISPRO 100 UNITS/ML SQ PRN ×2 (07:05→11:33)
[2018-10-27] MEDS: DIVALPROEX SODIUM 500 MG ER TABLET PO SCH ×2 (09:23→17:01)
[2018-10-27] MEDS: ATORVASTATIN CALCIUM 10 MG TABLET PO SCH (09:23)
[2018-10-27] MEDS: LISINOPRIL 5 MG TABLET PO SCH (09:23)
[2018-10-27] MEDS: GABAPENTIN 300 MG CAPSULE PO SCH ×3 (09:23→17:03)
[2018-10-27] MEDS: CHOLECALCIFEROL (VIT D3) 1,000 UNITS TABLET PO SCH (09:23)
[2018-10-27] MEDS: SERTRALINE HCL 50 MG TABLET PO SCH (09:23)
[2018-10-27] MEDS: ALBUTEROL SULFATE HFA 90 MCG/PUFF 8 GM INHALER IH PRN (09:26)
[2018-10-27] MEDS: NICOTINE 21 MG/24 HOUR PATCH TD SCH (09:29)
[2018-10-27 09:41] VITALS: BP 121/60
[2018-10-27 11:24] LABS: GLUCOMETER DEV NAME(LOC) 3E.I; GLUCOSE,POINT OF CARE 118 MG/DL (70-110)
[2018-10-27 12:46] VITALS: BP 120/68
[2018-10-27] MEDS: ACETAMINOPHEN 325 MG TABLET PO PRN (12:49)
[2018-10-27 16:24] LABS: GLUCOMETER DEV NAME(LOC) 3E.I; GLUCOSE,POINT OF CARE 140 MG/DL (70-110)
[2018-10-27 16:31] VITALS: BP 122/65
[2018-10-27 21:24] LABS: GLUCOMETER DEV NAME(LOC) 3E.I; GLUCOSE,POINT OF CARE 137 MG/DL (70-110)
[2018-10-27] MEDS: ZOLPIDEM TARTRATE 10 MG TABLET PO PRN (22:46)
[2018-10-28 03:35] VITALS: BP 130/90
[2018-10-28] MEDS: LORazepam 2 MG TABLET PO PRN ×3 (03:41→17:14)
[2018-10-28] MEDS: HALOPERIDOL 5 MG TABLET PO PRN ×4 (03:42→19:16)
[2018-10-28 06:20] LABS: GLUCOMETER DEV NAME(LOC) 3E.I; GLUCOSE,POINT OF CARE 121 MG/DL (70-110)
[2018-10-28] MEDS: MetFORMIN HCL 500 MG TABLET PO SCH ×2 (07:02→16:42)
[2018-10-28] MEDS: ZIPRASIDONE HCL 40 MG CAPSULE PO SCH ×2 (07:02→16:42)
[2018-10-28 08:01] VITALS: BP 137/83
[2018-10-28] MEDS: DIVALPROEX SODIUM 500 MG ER TABLET PO SCH ×2 (08:01→16:43)
[2018-10-28] MEDS: ACETAMINOPHEN 325 MG TABLET PO PRN ×2 (08:01→19:15)
[2018-10-28] MEDS: ATORVASTATIN CALCIUM 10 MG TABLET PO SCH (08:01)
[2018-10-28] MEDS: LISINOPRIL 5 MG TABLET PO SCH (08:01)
[2018-10-28] MEDS: GABAPENTIN 300 MG CAPSULE PO SCH ×3 (08:02→16:43)
[2018-10-28] MEDS: CHOLECALCIFEROL (VIT D3) 1,000 UNITS TABLET PO SCH (08:02)
[2018-10-28] MEDS: NICOTINE 21 MG/24 HOUR PATCH TD SCH (08:02)
[2018-10-28] MEDS: SERTRALINE HCL 50 MG TABLET PO SCH (08:02)
[2018-10-28 09:03] VITALS: BP 137/83
[2018-10-28 11:30] LABS: GLUCOMETER DEV NAME(LOC) 3E.I; GLUCOSE,POINT OF CARE 107 MG/DL (70-110)
[2018-10-28 17:02] VITALS: BP 118/78
[2018-10-28 17:24] LABS: GLUCOMETER DEV NAME(LOC) 3E.I; GLUCOSE,POINT OF CARE 136 MG/DL (70-110)
[2018-10-28 19:13] VITALS: BP 128/79
[2018-10-28] MEDS: ZOLPIDEM TARTRATE 10 MG TABLET PO PRN (20:44)
[2018-10-29 01:45] VITALS: BP 146/91
[2018-10-29] MEDS: LORazepam 2 MG TABLET PO PRN ×3 (01:49→17:17)
[2018-10-29 06:30] LABS: GLUCOMETER DEV NAME(LOC) 3E.I; GLUCOSE,POINT OF CARE 108 MG/DL (70-110)
[2018-10-29] MEDS: INSULIN LISPRO 100 UNITS/ML SQ PRN ×3 (06:42→17:18)
[2018-10-29] MEDS: ZIPRASIDONE HCL 40 MG CAPSULE PO SCH ×2 (06:42→17:18)
[2018-10-29] MEDS: MetFORMIN HCL 500 MG TABLET PO SCH ×2 (06:42→17:17)
[2018-10-29] MEDS: LISINOPRIL 5 MG TABLET PO SCH (08:53)
[2018-10-29] MEDS: SERTRALINE HCL 50 MG TABLET PO SCH (08:54)
[2018-10-29] MEDS: ATORVASTATIN CALCIUM 10 MG TABLET PO SCH (08:54)
[2018-10-29] MEDS: CHOLECALCIFEROL (VIT D3) 1,000 UNITS TABLET PO SCH (08:54)
[2018-10-29] MEDS: DIVALPROEX SODIUM 500 MG ER TABLET PO SCH ×2 (08:54→17:17)
[2018-10-29] MEDS: GABAPENTIN 300 MG CAPSULE PO SCH ×3 (08:54→17:17)
[2018-10-29] MEDS: NICOTINE 21 MG/24 HOUR PATCH TD SCH (08:54)
[2018-10-29 11:19] LABS: GLUCOMETER DEV NAME(LOC) 3E.I; GLUCOSE,POINT OF CARE 156 MG/DL (70-110)
[2018-10-29] MEDS: HALOPERIDOL 5 MG TABLET PO PRN ×2 (11:23→21:15)
[2018-10-29] MEDS ORDERED: LORazepam 2 MG/ML VIAL IM ONE (12:00)
[2018-10-29] MEDS ORDERED: HALOPERIDOL LACTATE 5 MG/ML VIAL IM ONE (12:00)
[2018-10-29] MEDS ORDERED: DiphenhydrAMINE HCL 50 MG/ML VIAL IM ONE (12:00)
[2018-10-29 16:19] LABS: GLUCOMETER DEV NAME(LOC) 3E.I; GLUCOSE,POINT OF CARE 177 MG/DL (70-110)
[2018-10-29 16:38] VITALS: BP 119/74
[2018-10-29 20:39] LABS: GLUCOMETER DEV NAME(LOC) 3E.I; GLUCOSE,POINT OF CARE 138 MG/DL (70-110)
[2018-10-29] MEDS: ZOLPIDEM TARTRATE 10 MG TABLET PO PRN (21:15)
[2018-10-30 04:40] VITALS: BP 151/89
[2018-10-30] MEDS: LORazepam 2 MG TABLET PO PRN ×3 (04:42→16:51)
[2018-10-30] MEDS: ACETAMINOPHEN 325 MG TABLET PO PRN (04:42)
[2018-10-30 05:56] LABS: GLUCOMETER DEV NAME(LOC) 3E.I; GLUCOSE,POINT OF CARE 100 MG/DL (70-110)
[2018-10-30] MEDS: MetFORMIN HCL 500 MG TABLET PO SCH ×2 (07:02→16:52)
[2018-10-30] MEDS: ZIPRASIDONE HCL 40 MG CAPSULE PO SCH ×2 (07:02→16:51)
[2018-10-30 09:00] VITALS: BP 123/70
[2018-10-30] MEDS: ATORVASTATIN CALCIUM 10 MG TABLET PO SCH (09:00)
[2018-10-30] MEDS: NICOTINE 21 MG/24 HOUR PATCH TD SCH (09:00)
[2018-10-30] MEDS: CHOLECALCIFEROL (VIT D3) 1,000 UNITS TABLET PO SCH (09:00)
[2018-10-30] MEDS: GABAPENTIN 300 MG CAPSULE PO SCH ×3 (09:00→16:51)
[2018-10-30] MEDS: DIVALPROEX SODIUM 500 MG ER TABLET PO SCH ×2 (09:00→16:51)
[2018-10-30] MEDS: LISINOPRIL 5 MG TABLET PO SCH (09:00)
[2018-10-30] MEDS: SERTRALINE HCL 50 MG TABLET PO SCH (09:00)
[2018-10-30] MEDS: HALOPERIDOL 5 MG TABLET PO PRN ×2 (11:43→20:56)
[2018-10-30 11:44] LABS: GLUCOMETER DEV NAME(LOC) 3E.I; GLUCOSE,POINT OF CARE 107 MG/DL (70-110)
[2018-10-30] MEDS: INSULIN LISPRO 100 UNITS/ML SQ PRN ×2 (12:09→17:36)
[2018-10-30 16:09] LABS: GLUCOMETER DEV NAME(LOC) 3E.I; GLUCOSE,POINT OF CARE 194 MG/DL (70-110)
[2018-10-30 20:14] LABS: GLUCOMETER DEV NAME(LOC) 3E.I; GLUCOSE,POINT OF CARE 126 MG/DL (70-110)
[2018-10-30] MEDS: ZOLPIDEM TARTRATE 10 MG TABLET PO PRN (20:56)
[2018-10-31 02:28] VITALS: BP 128/85
[2018-10-31] MEDS: HALOPERIDOL 5 MG TABLET PO PRN ×2 (02:28→06:57)
[2018-10-31] MEDS: LORazepam 2 MG TABLET PO PRN ×2 (02:28→06:57)
[2018-10-31] MEDS: ACETAMINOPHEN 325 MG TABLET PO PRN (02:31)
[2018-10-31 06:15] LABS: GLUCOMETER DEV NAME(LOC) 3E.I; GLUCOSE,POINT OF CARE 107 MG/DL (70-110)
[2018-10-31] MEDS: ZIPRASIDONE HCL 40 MG CAPSULE PO SCH (07:01)
[2018-10-31] MEDS: MetFORMIN HCL 500 MG TABLET PO SCH (07:01)
[2018-10-31] MEDS: ALBUTEROL SULFATE HFA 90 MCG/PUFF 8 GM INHALER IH PRN (10:01)
[2018-10-31] MEDS: CHOLECALCIFEROL (VIT D3) 1,000 UNITS TABLET PO SCH (10:09)
[2018-10-31] MEDS: GABAPENTIN 300 MG CAPSULE PO SCH ×2 (10:10→13:39)
[2018-10-31] MEDS: LISINOPRIL 5 MG TABLET PO SCH (10:10)
[2018-10-31] MEDS: SERTRALINE HCL 50 MG TABLET PO SCH (10:10)
[2018-10-31] MEDS: ATORVASTATIN CALCIUM 10 MG TABLET PO SCH (10:10)
[2018-10-31] MEDS: DIVALPROEX SODIUM 500 MG ER TABLET PO SCH (10:10)
[2018-10-31] MEDS: NICOTINE 21 MG/24 HOUR PATCH TD SCH (10:11)
[2018-10-31 12:00] LABS: GLUCOMETER DEV NAME(LOC) 3E.I; GLUCOSE,POINT OF CARE 176 MG/DL (70-110)
[2018-10-31] MEDS: INSULIN LISPRO 100 UNITS/ML SQ PRN (12:08)
[2018-10-31] MEDS ORDERED: ZIPR40CA2 PO (15:41)
[2018-10-31] MEDS ORDERED: GABA600T PO (15:43)
== END 2018-10-31 16:30 | disposition home or self-care (01) | DRG 885 ==
LOC: EMS 18:33 → 3EI 10-21 00:12
PROVIDERS: ADMIT Psychiatry & Neurology Psychiatry; ATTEND Psychiatry & Neurology Psychiatry
DX: F33.2 Major depressive disorder, recurrent severe without psychotic features (principal); R45.851 Suicidal ideations; E11.9 Type 2 diabetes mellitus without complications; E78.00 Pure hypercholesterolemia, unspecified; F20.9 Schizophrenia, unspecified; F41.9 Anxiety disorder, unspecified; I10 Essential (primary) hypertension; Z59.0 Homelessness; Z91.5 Personal history of self-harm; Z88.5 Allergy status to narcotic agent; Z88.2 Allergy status to sulfonamides; Z79.899 Other long term (current) drug therapy
CPT/HCPCS: 83036; 84439; 84443; G0480; J1200; J1630; J2060; J3535

== ENCOUNTER 2018-11-07 18:16 | Inpatient (IN) | payer MEDICAID, OTHER ==
[~2018-11-07] VITALS: Ht 170.2 cm; Wt 166.0 kg
[~2018-11-07 18:16] MED LIST changes: +ATOR10TA84 PO; -CLON.5 PO; +GABA600T PO; -GLIM2 PO; +LISI-660 PO; -ROSU10TA22 PO; +ZIPR40CA2 PO
[2018-11-07] MEDS ORDERED: ZIPR20CA2 PO (18:38)
[2018-11-07] MEDS ORDERED: GABA-529 PO (18:38)
[2018-11-07] MEDS ORDERED: METF-960 PO (18:38)
[2018-11-07] MEDS ORDERED: ATOR10TA84 PO (18:38)
[2018-11-07] MEDS ORDERED: VENL25TA47 PO (18:38)
[2018-11-07 18:53] LABS: EOSINOPHILS % (AUTO) 1.3 % (1.0-6.0); HEMATOCRIT 40.3 % (36-46); HEMOGLOBIN 13.4 g/dL (12.0-16.0); LYMPHOCYTES # (AUTO) 2.2 K/uL (1.0-4.8); LYMPHOCYTES % (AUTO) 32.7 % (22.0-44.0); MEAN CORPUSCULAR HEMOGLOBIN 30.6 pg (26.0-34.0); MEAN CORPUSCULAR HGB CONC 33.2 G/dL (31.0-37.0); MEAN CORPUSCULAR VOLUME 92 fL (80-100); MONOCYTES # (AUTO) 0.5 K/uL (0.1-1.0); MONOCYTES % (AUTO) 7.2 % (2.0-9.0); NEUTROPHILS % (AUTO) 57.8 % (40.0-70.0); PLATELET COUNT (AUTO) 277 K/uL (150-450); RED BLOOD CELL COUNT(AUTO) 4.37 MIL/uL (4.00-5.20); RED CELL DISTRIBUTION WIDTH 13.3 % (11.5-14.5)
[2018-11-07 19:05] LABS: ANION GAP 7 mmol/L (8-16); CARBON DIOXIDE 29 mmol/L (22-29); CHLORIDE 106 mmol/L (98-107); CREATININE 0.89 mg/dL (0.60-1.30); GLOMERULAR FILTR. RATE CALC > 60 mL/min (>60); GLUCOSE,RANDOM 139 mg/dL (70-110); POTASSIUM 4.3 mmol/L (3.5-5.1); SODIUM SERUM 142 mmol/L (136-145); UREA NITROGEN, BLOOD 15 mg/dL (7-18)
[2018-11-07 19:19] LABS: ALANINE AMINOTRANSFERASE 23 U/L (12-78); ALBUMIN 3.3 g/dL (3.4-5.0); ALKALINE PHOSPHATASE 89 U/L (46-116); ASPARTATE AMINOTRANSFERASE 11 U/L (15-37); BILIRUBIN,TOTAL 0.1 mg/dL (0.1-1.0); HCG,QUANTITATIVE < 1 mIU/mL (0-6); TOTAL PROTEIN, SERUM 7.3 g/dL (6.4-8.2)
[2018-11-07 19:22] LABS: ACETAMINOPHEN < 2 mcg/mL (10-30)
[2018-11-07 19:48] LABS: SALICYLATE 4.6 mg/dL (2.8-20.0)
[2018-11-07 20:12] LABS: VALPROIC ACID 22 mcg/mL (50-100)
[2018-11-07] MEDS ORDERED: ACETAMINOPHEN 325 MG TABLET PO ONE (20:15)
[2018-11-07 20:17] LABS: BARBITURATE SCREEN, URINE NEGATIVE (NEGATIVE); BENZODIAZEPINES SCREEN,URINE NEGATIVE (NEGATIVE); CANNABINOID SCREEN,URINE NEGATIVE (NEGATIVE); COCAINE SCREEN,URINE NEGATIVE (NEGATIVE); OPIATE SCREEN,URINE NEGATIVE (NEGATIVE)
[2018-11-07 20:20] LABS: PHENCYCLIDINE SCREEN,URINE NEGATIVE (NEGATIVE)
[2018-11-07] MEDS ORDERED: ACETAMINOPHEN 325 MG TABLET ONE (20:29)
[2018-11-07 20:38] LABS: AMPHET/METH SCREEN,URINE POSITIVE (NEGATIVE); METHADONE SCREEN, URINE NEGATIVE (NEGATIVE)
[2018-11-08] MEDS ORDERED: HALOPERIDOL 5 MG TABLET PO PRN (07:15)
[2018-11-08] MEDS ORDERED: ACETAMINOPHEN 325 MG TABLET PO ONE (07:45)
[2018-11-08] MEDS: LORazepam 2 MG TABLET PO PRN ×2 (09:37→17:00)
[2018-11-08] MEDS ORDERED: CloNIDine HCL 0.1 MG TABLET PO PRN (14:00)
[2018-11-08] MEDS ORDERED: ONDANSETRON HCL 4 MG TABLET PO PRN (14:00)
[2018-11-08] MEDS ORDERED: ALBUTEROL SULFATE HFA 90 MCG/PUFF 8 GM INHALER IH PRN (14:00)
[2018-11-08] MEDS ORDERED: BENZOCAINE/MENTHOL LOZENGE MM PRN (14:00)
[2018-11-08] MEDS ORDERED: LOPERAMIDE HCL 2 MG CAPSULE PO PRN (14:00)
[2018-11-08] MEDS ORDERED: DEXTROSE 50%-WATER 25 GM/50 ML SYRINGE IVP PRN (14:00)
[2018-11-08] MEDS ORDERED: PETROLATUM,WHITE 28 GM JELLY TP PRN (14:00)
[2018-11-08] MEDS ORDERED: MAG HYDROX/AL HYDROX/SIMETH ES 30 ML SUSPENSION UDCUP PO PRN (14:00)
[2018-11-08] MEDS ORDERED: MAGNESIUM HYDROXIDE SUSPENSION 30 ML UDCUP PO PRN (14:00)
[2018-11-08] MEDS ORDERED: BACITRACIN 28.4 GM OINTMENT TP PRN (14:00)
[2018-11-08 14:18] VITALS: BP 143/91
[2018-11-08 16:05] VITALS: BP 132/92
[2018-11-08] MEDS: ACETAMINOPHEN 325 MG TABLET PO PRN (16:06)
[2018-11-08] MEDS: DIVALPROEX SODIUM 500 MG DR TABLET PO SCH (16:07)
[2018-11-08] MEDS: INSULIN LISPRO 100 UNITS/ML SQ PRN (16:47)
[2018-11-08] MEDS: MetFORMIN HCL 500 MG TABLET PO SCH ×2 (17:01→17:02)
[2018-11-08] MEDS: ZIPRASIDONE HCL 40 MG CAPSULE PO SCH (17:43)
[2018-11-09] MEDS: ACETAMINOPHEN 325 MG TABLET PO PRN ×3 (00:55→16:21)
[2018-11-09 00:56] VITALS: BP 131/84
[2018-11-09 05:34] LABS: GLUCOMETER DEV NAME(LOC) 3E.I; GLUCOSE,POINT OF CARE 121 MG/DL (70-110)
[2018-11-09] MEDS: MetFORMIN HCL 500 MG TABLET PO SCH ×4 (06:37→16:20)
[2018-11-09] MEDS: ZIPRASIDONE HCL 40 MG CAPSULE PO SCH ×2 (06:37→16:20)
[2018-11-09 08:05] VITALS: BP 138/76
[2018-11-09] MEDS: DOCUSATE SODIUM 100 MG CAPSULE PO SCH (08:11)
[2018-11-09] MEDS: DIVALPROEX SODIUM 500 MG DR TABLET PO SCH ×2 (08:11→16:20)
[2018-11-09] MEDS: ATORVASTATIN CALCIUM 10 MG TABLET PO SCH (08:11)
[2018-11-09] MEDS: OMEPRAZOLE 20 MG CAPSULE PO SCH (08:11)
[2018-11-09] MEDS: SERTRALINE HCL 50 MG TABLET PO SCH (08:13)
[2018-11-09] MEDS: LISINOPRIL 5 MG TABLET PO SCH (08:13)
[2018-11-09 08:16] VITALS: BP 136/78
[2018-11-09 09:16] VITALS: BP 122/60
[2018-11-09 11:49] LABS: GLUCOMETER DEV NAME(LOC) 3E.I; GLUCOSE,POINT OF CARE 115 MG/DL (70-110)
[2018-11-09] MEDS: INSULIN LISPRO 100 UNITS/ML SQ PRN (13:04)
[2018-11-09 17:01] VITALS: BP 123/81
[2018-11-09 17:20] LABS: GLUCOMETER DEV NAME(LOC) 3E.I; GLUCOSE,POINT OF CARE 135 MG/DL (70-110)
[2018-11-09 21:24] LABS: GLUCOMETER DEV NAME(LOC) 3E.I; GLUCOSE,POINT OF CARE 96 MG/DL (70-110)
[2018-11-10 00:50] VITALS: BP 136/64
[2018-11-10] MEDS: ZOLPIDEM TARTRATE 10 MG TABLET PO PRN ×2 (00:53→20:30)
[2018-11-10] MEDS: LORazepam 2 MG TABLET PO PRN ×2 (00:53→10:15)
[2018-11-10] MEDS: ACETAMINOPHEN 325 MG TABLET PO PRN ×3 (00:53→20:30)
[2018-11-10 05:42] LABS: GLUCOMETER DEV NAME(LOC) 3E.I; GLUCOSE,POINT OF CARE 108 MG/DL (70-110)
[2018-11-10] MEDS: INSULIN LISPRO 100 UNITS/ML SQ PRN (06:43)
[2018-11-10] MEDS: MetFORMIN HCL 500 MG TABLET PO SCH ×4 (06:51→17:20)
[2018-11-10] MEDS: ZIPRASIDONE HCL 40 MG CAPSULE PO SCH ×2 (06:52→16:32)
[2018-11-10 08:18] VITALS: BP 107/71
[2018-11-10] MEDS: ATORVASTATIN CALCIUM 10 MG TABLET PO SCH (08:54)
[2018-11-10] MEDS: DIVALPROEX SODIUM 500 MG DR TABLET PO SCH ×2 (08:56→16:32)
[2018-11-10] MEDS: DOCUSATE SODIUM 100 MG CAPSULE PO SCH (08:56)
[2018-11-10] MEDS: OMEPRAZOLE 20 MG CAPSULE PO SCH (08:56)
[2018-11-10] MEDS: LISINOPRIL 5 MG TABLET PO SCH (09:00)
[2018-11-10] MEDS: SERTRALINE HCL 50 MG TABLET PO SCH (09:01)
[2018-11-10 10:16] VITALS: BP 107/71
[2018-11-10 11:18] LABS: GLUCOMETER DEV NAME(LOC) 3EX.; GLUCOSE,POINT OF CARE 160 MG/DL (70-110)
[2018-11-10 18:04] VITALS: BP 136/70
[2018-11-10 23:44] LABS: GLUCOMETER DEV NAME(LOC) 3EX.; GLUCOSE,POINT OF CARE 157 MG/DL (70-110)
[2018-11-11 01:20] VITALS: BP 115/69
[2018-11-11] MEDS: LORazepam 2 MG TABLET PO PRN ×2 (01:25→17:04)
[2018-11-11] MEDS: ACETAMINOPHEN 325 MG TABLET PO PRN (01:26)
[2018-11-11 05:54] LABS: GLUCOMETER DEV NAME(LOC) 3E.I; GLUCOSE,POINT OF CARE 107 MG/DL (70-110)
[2018-11-11] MEDS: MetFORMIN HCL 500 MG TABLET PO SCH ×4 (06:30→17:03)
[2018-11-11] MEDS: ZIPRASIDONE HCL 40 MG CAPSULE PO SCH ×2 (06:45→17:02)
[2018-11-11] MEDS: DOCUSATE SODIUM 100 MG CAPSULE PO SCH (08:43)
[2018-11-11] MEDS: SERTRALINE HCL 50 MG TABLET PO SCH (08:43)
[2018-11-11] MEDS: ATORVASTATIN CALCIUM 10 MG TABLET PO SCH (08:43)
[2018-11-11] MEDS: OMEPRAZOLE 20 MG CAPSULE PO SCH (08:43)
[2018-11-11] MEDS: DIVALPROEX SODIUM 500 MG DR TABLET PO SCH ×2 (08:43→17:02)
[2018-11-11] MEDS: LISINOPRIL 5 MG TABLET PO SCH (08:47)
[2018-11-11 08:49] VITALS: BP 133/60
[2018-11-11 11:19] LABS: GLUCOMETER DEV NAME(LOC) 3EX.; GLUCOSE,POINT OF CARE 155 MG/DL (70-110)
[2018-11-11] MEDS: INSULIN LISPRO 100 UNITS/ML SQ PRN ×3 (11:36→22:27)
[2018-11-11 16:18] LABS: GLUCOMETER DEV NAME(LOC) 3EX.; GLUCOSE,POINT OF CARE 156 MG/DL (70-110)
[2018-11-11 16:49] VITALS: BP 121/67
[2018-11-11] MEDS: ZOLPIDEM TARTRATE 10 MG TABLET PO PRN (20:31)
[2018-11-11 20:39] LABS: GLUCOMETER DEV NAME(LOC) 3EX.; GLUCOSE,POINT OF CARE 133 MG/DL (70-110)
[2018-11-12 00:37] VITALS: BP 116/94
[2018-11-12] MEDS: LORazepam 2 MG TABLET PO PRN ×2 (00:40→09:18)
[2018-11-12] MEDS: ACETAMINOPHEN 325 MG TABLET PO PRN ×2 (00:46→09:19)
[2018-11-12 05:39] LABS: GLUCOMETER DEV NAME(LOC) 3EX.; GLUCOSE,POINT OF CARE 99 MG/DL (70-110)
[2018-11-12] MEDS: ZIPRASIDONE HCL 40 MG CAPSULE PO SCH (06:43)
[2018-11-12] MEDS: MetFORMIN HCL 500 MG TABLET PO SCH ×2 (06:43)
[2018-11-12] MEDS: SERTRALINE HCL 50 MG TABLET PO SCH (09:06)
[2018-11-12] MEDS: OMEPRAZOLE 20 MG CAPSULE PO SCH (09:06)
[2018-11-12] MEDS: ATORVASTATIN CALCIUM 10 MG TABLET PO SCH (09:06)
[2018-11-12] MEDS: DIVALPROEX SODIUM 500 MG DR TABLET PO SCH (09:06)
[2018-11-12] MEDS: LISINOPRIL 5 MG TABLET PO SCH (09:18)
[2018-11-12 09:19] VITALS: BP 120/60
[2018-11-12] MEDS: DOCUSATE SODIUM 100 MG CAPSULE PO SCH (09:19)
[2018-11-12 11:19] LABS: GLUCOMETER DEV NAME(LOC) 3EX.; GLUCOSE,POINT OF CARE 105 MG/DL (70-110)
[2018-11-12] MEDS ORDERED: DSS100 PO (13:25)
== END 2018-11-12 13:40 | disposition home or self-care (01) | DRG 750 ==
LOC: EMS 18:16 → 3EX 11-08 12:54
PROVIDERS: ADMIT Psychiatry & Neurology Psychiatry; ATTEND Psychiatry & Neurology Psychiatry
DX: F25.9 Schizoaffective disorder, unspecified (principal); E11.9 Type 2 diabetes mellitus without complications; E78.00 Pure hypercholesterolemia, unspecified; F31.9 Bipolar disorder, unspecified; I10 Essential (primary) hypertension; F17.210 Nicotine dependence, cigarettes, uncomplicated; Z88.6 Allergy status to analgesic agent; Z88.2 Allergy status to sulfonamides; Z79.84 Long term (current) use of oral hypoglycemic drugs; Z79.899 Other long term (current) drug therapy
CPT/HCPCS: 83735; 87081; 93005; 99291; G0378; G0480; G0481; J3535

== ENCOUNTER 2018-11-16 18:17 | Inpatient (IN) | payer MEDICAID, OTHER ==
[~2018-11-16] VITALS: Ht 167.6 cm; Wt 161.7 kg
[~2018-11-16 18:17] MED LIST changes: +DSS100 PO; -GABA600T PO; -METF-444 PO; +METF-960 PO; -VITAD1000 PO
[2018-11-16] MEDS ORDERED: OMEP10 PO (18:44)
[2018-11-16] MEDS ORDERED: VENL25TA47 PO (18:44)
[2018-11-16 19:09] LABS: GLUCOSE,POINT OF CARE 257 MG/DL (70-110)
[2018-11-16 19:27] LABS: BASOPHILS % (AUTO) 0.4 % (0.0-2.0); EOSINOPHILS % (AUTO) 1.2 % (1.0-6.0); HEMATOCRIT 40.5 % (36-46); HEMOGLOBIN 13.3 g/dL (12.0-16.0); LYMPHOCYTES # (AUTO) 1.3 K/uL (1.0-4.8); LYMPHOCYTES % (AUTO) 17.4 % (22.0-44.0); MEAN CORPUSCULAR HEMOGLOBIN 29.9 pg (26.0-34.0); MEAN CORPUSCULAR HGB CONC 32.8 G/dL (31.0-37.0); MEAN CORPUSCULAR VOLUME 91 fL (80-100); MONOCYTES # (AUTO) 0.4 K/uL (0.1-1.0); MONOCYTES % (AUTO) 5.6 % (2.0-9.0); NEUTROPHILS # (AUTO) 5.6 K/uL (1.8-7.7); NEUTROPHILS % (AUTO) 75.4 % (40.0-70.0); PLATELET COUNT (AUTO) 223 K/uL (150-450); RED BLOOD CELL COUNT(AUTO) 4.44 MIL/uL (4.00-5.20)
[2018-11-16 19:37] LABS: ANION GAP 9 mmol/L (8-16); CALCIUM, TOTAL 8.5 mg/dL (8.8-10.5); CARBON DIOXIDE 24 mmol/L (22-29); CHLORIDE 105 mmol/L (98-107); CREATININE 0.93 mg/dL (0.60-1.30); GLOMERULAR FILTR. RATE CALC > 60 mL/min (>60); GLUCOSE,RANDOM 219 mg/dL (70-110); POTASSIUM 3.5 mmol/L (3.5-5.1); SODIUM SERUM 138 mmol/L (136-145); UREA NITROGEN, BLOOD 14 mg/dL (7-18)
[2018-11-16 19:44] LABS: ALANINE AMINOTRANSFERASE 15 U/L (12-78); ALKALINE PHOSPHATASE 90 U/L (46-116); ASPARTATE AMINOTRANSFERASE 5 U/L (15-37); BILIRUBIN,TOTAL 0.3 mg/dL (0.1-1.0); TOTAL PROTEIN, SERUM 6.7 g/dL (6.4-8.2); VALPROIC ACID 25 mcg/mL (50-100)
[2018-11-16 19:52] LABS: SALICYLATE 3.3 mg/dL (2.8-20.0)
[2018-11-16 19:58] LABS: ACETAMINOPHEN < 2 mcg/mL (10-30)
[2018-11-16 20:04] LABS: LACTIC ACID 3.5 mmol/L (0.4-2.0)
[2018-11-17 02:13] LABS: HCG,QUANTITATIVE < 1 mIU/mL (0-6)
[2018-11-17 04:11] VITALS: BP 130/82
[2018-11-17] MEDS ORDERED: LOPERAMIDE HCL 2 MG CAPSULE PO PRN (07:30)
[2018-11-17] MEDS ORDERED: MetFORMIN HCL 500 MG TABLET PO SCH (07:30)
[2018-11-17] MEDS ORDERED: ONDANSETRON HCL 4 MG TABLET PO PRN (07:30)
[2018-11-17] MEDS ORDERED: BENZOCAINE/MENTHOL LOZENGE MM PRN (07:30)
[2018-11-17] MEDS ORDERED: CloNIDine HCL 0.1 MG TABLET PO PRN (07:30)
[2018-11-17] MEDS ORDERED: PETROLATUM,WHITE 28 GM JELLY TP PRN (07:30)
[2018-11-17] MEDS ORDERED: MAG HYDROX/AL HYDROX/SIMETH ES 30 ML SUSPENSION UDCUP PO PRN (07:30)
[2018-11-17] MEDS ORDERED: DEXTROSE 50%-WATER 25 GM/50 ML SYRINGE IVP PRN (07:30)
[2018-11-17] MEDS ORDERED: BACITRACIN 28.4 GM OINTMENT TP PRN (07:30)
[2018-11-17] MEDS ORDERED: MAGNESIUM HYDROXIDE SUSPENSION 30 ML UDCUP PO PRN (07:30)
[2018-11-17 08:00] VITALS: BP 130/76
[2018-11-17] MEDS: ZIPRASIDONE HCL 40 MG CAPSULE PO SCH ×2 (08:24→17:21)
[2018-11-17] MEDS: MetFORMIN HCL 500 MG TABLET PO SCH ×2 (08:24→17:21)
[2018-11-17 08:29] LABS: GLUCOMETER DEV NAME(LOC) 3E.I; GLUCOSE,POINT OF CARE 107 MG/DL (70-110)
[2018-11-17] MEDS: ATORVASTATIN CALCIUM 10 MG TABLET PO SCH (08:46)
[2018-11-17] MEDS: OMEPRAZOLE 20 MG CAPSULE PO SCH (08:46)
[2018-11-17] MEDS: DIVALPROEX SODIUM 500 MG DR TABLET PO SCH ×2 (08:47→17:21)
[2018-11-17] MEDS: DOCUSATE SODIUM 100 MG CAPSULE PO SCH (08:47)
[2018-11-17] MEDS: LISINOPRIL 5 MG TABLET PO SCH (08:48)
[2018-11-17] MEDS: SERTRALINE HCL 50 MG TABLET PO SCH (08:49)
[2018-11-17 11:19] LABS: GLUCOMETER DEV NAME(LOC) 3E.I; GLUCOSE,POINT OF CARE 154 MG/DL (70-110)
[2018-11-17] MEDS: INSULIN LISPRO 100 UNITS/ML SQ PRN ×3 (11:37→20:46)
[2018-11-17 16:00] VITALS: BP 102/65
[2018-11-17 17:09] LABS: GLUCOMETER DEV NAME(LOC) 3E.I; GLUCOSE,POINT OF CARE 169 MG/DL (70-110)
[2018-11-17 20:39] LABS: GLUCOMETER DEV NAME(LOC) 3E.I; GLUCOSE,POINT OF CARE 152 MG/DL (70-110)
[2018-11-18] MEDS: ALBUTEROL SULFATE HFA 90 MCG/PUFF 8 GM INHALER IH PRN ×2 (01:24→12:20)
[2018-11-18 05:24] LABS: GLUCOMETER DEV NAME(LOC) 3E.I; GLUCOSE,POINT OF CARE 128 MG/DL (70-110)
[2018-11-18] MEDS: ZIPRASIDONE HCL 40 MG CAPSULE PO SCH ×2 (07:02→17:07)
[2018-11-18] MEDS: MetFORMIN HCL 500 MG TABLET PO SCH ×2 (07:03→17:07)
[2018-11-18] MEDS: INSULIN LISPRO 100 UNITS/ML SQ PRN ×2 (07:06→20:51)
[2018-11-18 08:00] VITALS: BP 132/79
[2018-11-18] MEDS: OMEPRAZOLE 20 MG CAPSULE PO SCH (08:11)
[2018-11-18] MEDS: DIVALPROEX SODIUM 500 MG DR TABLET PO SCH ×2 (08:11→16:13)
[2018-11-18] MEDS: DOCUSATE SODIUM 100 MG CAPSULE PO SCH (08:11)
[2018-11-18] MEDS: ATORVASTATIN CALCIUM 10 MG TABLET PO SCH (08:12)
[2018-11-18] MEDS: LISINOPRIL 5 MG TABLET PO SCH (08:12)
[2018-11-18] MEDS: SERTRALINE HCL 50 MG TABLET PO SCH (08:12)
[2018-11-18] MEDS: HALOPERIDOL 5 MG TABLET PO PRN ×2 (08:13→12:19)
[2018-11-18] MEDS: LORazepam 2 MG TABLET PO PRN ×2 (08:13→12:19)
[2018-11-18 11:14] LABS: GLUCOMETER DEV NAME(LOC) 3E.I; GLUCOSE,POINT OF CARE 117 MG/DL (70-110)
[2018-11-18 16:24] LABS: GLUCOMETER DEV NAME(LOC) 3E.I; GLUCOSE,POINT OF CARE 107 MG/DL (70-110)
[2018-11-18] MEDS: ZOLPIDEM TARTRATE 10 MG TABLET PO PRN (20:48)
[2018-11-18 20:54] LABS: GLUCOMETER DEV NAME(LOC) 3E.I; GLUCOSE,POINT OF CARE 141 MG/DL (70-110)
[2018-11-19 05:24] LABS: GLUCOMETER DEV NAME(LOC) 3E.I; GLUCOSE,POINT OF CARE 99 MG/DL (70-110)
[2018-11-19 06:10] VITALS: BP 133/99
[2018-11-19] MEDS: LORazepam 2 MG TABLET PO PRN ×2 (06:17→12:28)
[2018-11-19] MEDS: ALBUTEROL SULFATE HFA 90 MCG/PUFF 8 GM INHALER IH PRN (06:18)
[2018-11-19] MEDS: ZIPRASIDONE HCL 40 MG CAPSULE PO SCH ×2 (07:06→16:26)
[2018-11-19] MEDS: MetFORMIN HCL 500 MG TABLET PO SCH ×2 (07:06→16:25)
[2018-11-19] MEDS: INSULIN LISPRO 100 UNITS/ML SQ PRN ×4 (07:08→20:59)
[2018-11-19 07:19] LABS: HEMOGLOBIN A1C 6.6 % (4.5-6.2)
[2018-11-19 07:29] LABS: CHOL/HDL RATIO 4.2 (3.9-5.7)
[2018-11-19 08:19] VITALS: BP 130/78
[2018-11-19] MEDS: SERTRALINE HCL 50 MG TABLET PO SCH (09:11)
[2018-11-19] MEDS: ATORVASTATIN CALCIUM 10 MG TABLET PO SCH (09:11)
[2018-11-19] MEDS: OMEPRAZOLE 20 MG CAPSULE PO SCH (09:11)
[2018-11-19] MEDS: DOCUSATE SODIUM 100 MG CAPSULE PO SCH (09:12)
[2018-11-19] MEDS: LISINOPRIL 5 MG TABLET PO SCH (09:12)
[2018-11-19] MEDS: DIVALPROEX SODIUM 500 MG DR TABLET PO SCH ×2 (09:17→16:26)
[2018-11-19 10:54] LABS: GLUCOMETER DEV NAME(LOC) 3E.I; GLUCOSE,POINT OF CARE 159 MG/DL (70-110)
[2018-11-19] MEDS: HALOPERIDOL 5 MG TABLET PO PRN (12:28)
[2018-11-19 17:29] LABS: GLUCOMETER DEV NAME(LOC) 3E.I; GLUCOSE,POINT OF CARE 122 MG/DL (70-110)
[2018-11-19 20:49] LABS: GLUCOMETER DEV NAME(LOC) 3E.I; GLUCOSE,POINT OF CARE 149 MG/DL (70-110)
[2018-11-19] MEDS: ZOLPIDEM TARTRATE 10 MG TABLET PO PRN (21:04)
[2018-11-20] MEDS: LORazepam 2 MG TABLET PO PRN ×4 (01:41→16:16)
[2018-11-20] MEDS: ALBUTEROL SULFATE HFA 90 MCG/PUFF 8 GM INHALER IH PRN (01:45)
[2018-11-20 05:44] LABS: GLUCOMETER DEV NAME(LOC) 3E.I; GLUCOSE,POINT OF CARE 100 MG/DL (70-110)
[2018-11-20] MEDS: ZIPRASIDONE HCL 40 MG CAPSULE PO SCH ×2 (07:00→17:37)
[2018-11-20] MEDS: MetFORMIN HCL 500 MG TABLET PO SCH ×2 (07:01→17:38)
[2018-11-20] MEDS: INSULIN LISPRO 100 UNITS/ML SQ PRN ×3 (07:02→17:38)
[2018-11-20] MEDS: DIVALPROEX SODIUM 500 MG DR TABLET PO SCH ×2 (09:02→17:37)
[2018-11-20] MEDS: LISINOPRIL 5 MG TABLET PO SCH (09:02)
[2018-11-20] MEDS: OMEPRAZOLE 20 MG CAPSULE PO SCH (09:02)
[2018-11-20] MEDS: SERTRALINE HCL 50 MG TABLET PO SCH (09:02)
[2018-11-20] MEDS: ATORVASTATIN CALCIUM 10 MG TABLET PO SCH (09:02)
[2018-11-20] MEDS: DOCUSATE SODIUM 100 MG CAPSULE PO SCH (09:02)
[2018-11-20 10:23] VITALS: BP 141/89
[2018-11-20] MEDS: HALOPERIDOL 5 MG TABLET PO PRN ×2 (11:21→16:17)
[2018-11-20 11:34] LABS: GLUCOMETER DEV NAME(LOC) 3E.I; GLUCOSE,POINT OF CARE 100 MG/DL (70-110)
[2018-11-20 16:30] LABS: GLUCOMETER DEV NAME(LOC) 3E.I; GLUCOSE,POINT OF CARE 118 MG/DL (70-110)
[2018-11-20 18:59] VITALS: BP 124/75
[2018-11-21] MEDS: ALBUTEROL SULFATE HFA 90 MCG/PUFF 8 GM INHALER IH PRN ×2 (02:54→12:02)
[2018-11-21] MEDS: ZOLPIDEM TARTRATE 10 MG TABLET PO PRN ×2 (02:54→20:03)
[2018-11-21] MEDS: LORazepam 2 MG TABLET PO PRN ×3 (02:59→17:11)
[2018-11-21 03:00] VITALS: BP 127/82
[2018-11-21 05:44] LABS: GLUCOMETER DEV NAME(LOC) 3E.I; GLUCOSE,POINT OF CARE 143 MG/DL (70-110)
[2018-11-21] MEDS: ZIPRASIDONE HCL 40 MG CAPSULE PO SCH ×2 (06:46→17:11)
[2018-11-21] MEDS: MetFORMIN HCL 500 MG TABLET PO SCH ×2 (06:46→17:11)
[2018-11-21] MEDS: INSULIN LISPRO 100 UNITS/ML SQ PRN ×3 (06:47→17:21)
[2018-11-21] MEDS: DIVALPROEX SODIUM 500 MG DR TABLET PO SCH ×2 (08:03→17:11)
[2018-11-21] MEDS: OMEPRAZOLE 20 MG CAPSULE PO SCH (08:03)
[2018-11-21] MEDS: HALOPERIDOL 5 MG TABLET PO PRN ×3 (08:03→17:11)
[2018-11-21] MEDS: NICOTINE 21 MG/24 HOUR PATCH TD SCH (08:03)
[2018-11-21] MEDS: SERTRALINE HCL 50 MG TABLET PO SCH (08:03)
[2018-11-21] MEDS: DOCUSATE SODIUM 100 MG CAPSULE PO SCH (08:04)
[2018-11-21] MEDS: LISINOPRIL 5 MG TABLET PO SCH (08:05)
[2018-11-21] MEDS: ATORVASTATIN CALCIUM 10 MG TABLET PO SCH (08:07)
[2018-11-21 08:10] VITALS: BP 120/72
[2018-11-21 11:09] LABS: GLUCOMETER DEV NAME(LOC) 3E.I; GLUCOSE,POINT OF CARE 100 MG/DL (70-110)
[2018-11-21 16:46] VITALS: BP 108/58
[2018-11-21 17:19] LABS: GLUCOMETER DEV NAME(LOC) 3E.I; GLUCOSE,POINT OF CARE 151 MG/DL (70-110)
[2018-11-21] MEDS: GABAPENTIN 300 MG CAPSULE PO SCH (20:02)
[2018-11-21 20:17] LABS: GLUCOMETER DEV NAME(LOC) 3E.I; GLUCOSE,POINT OF CARE 105 MG/DL (70-110)
[2018-11-22] MEDS: LORazepam 2 MG TABLET PO PRN ×2 (05:24→14:34)
[2018-11-22 05:45] LABS: GLUCOMETER DEV NAME(LOC) 3E.I; GLUCOSE,POINT OF CARE 110 MG/DL (70-110)
[2018-11-22] MEDS: ZIPRASIDONE HCL 40 MG CAPSULE PO SCH ×2 (07:02→16:41)
[2018-11-22] MEDS: INSULIN LISPRO 100 UNITS/ML SQ PRN ×3 (07:03→17:32)
[2018-11-22] MEDS: MetFORMIN HCL 500 MG TABLET PO SCH ×2 (07:03→16:41)
[2018-11-22 08:00] VITALS: BP 128/92
[2018-11-22] MEDS: DIVALPROEX SODIUM 500 MG DR TABLET PO SCH ×2 (10:26→16:42)
[2018-11-22] MEDS: LISINOPRIL 5 MG TABLET PO SCH (10:26)
[2018-11-22] MEDS: GABAPENTIN 300 MG CAPSULE PO SCH ×2 (10:26→16:41)
[2018-11-22] MEDS: SERTRALINE HCL 50 MG TABLET PO SCH (10:26)
[2018-11-22] MEDS: OMEPRAZOLE 20 MG CAPSULE PO SCH (10:26)
[2018-11-22] MEDS: DOCUSATE SODIUM 100 MG CAPSULE PO SCH (10:27)
[2018-11-22] MEDS: ATORVASTATIN CALCIUM 10 MG TABLET PO SCH (10:27)
[2018-11-22] MEDS: NICOTINE 21 MG/24 HOUR PATCH TD SCH (10:28)
[2018-11-22 11:19] LABS: GLUCOMETER DEV NAME(LOC) 3E.I; GLUCOSE,POINT OF CARE 99 MG/DL (70-110)
[2018-11-22 17:09] LABS: GLUCOMETER DEV NAME(LOC) 3E.I; GLUCOSE,POINT OF CARE 159 MG/DL (70-110)
[2018-11-22] MEDS: HALOPERIDOL 5 MG TABLET PO PRN (17:21)
[2018-11-22 17:34] VITALS: BP 113/65
[2018-11-22] MEDS: ZOLPIDEM TARTRATE 10 MG TABLET PO PRN (20:06)
[2018-11-22 20:34] LABS: GLUCOMETER DEV NAME(LOC) 3E.I; GLUCOSE,POINT OF CARE 109 MG/DL (70-110)
[2018-11-23 05:35] LABS: GLUCOMETER DEV NAME(LOC) 3E.I; GLUCOSE,POINT OF CARE 108 MG/DL (70-110)
[2018-11-23] MEDS: ZIPRASIDONE HCL 40 MG CAPSULE PO SCH ×2 (06:40→17:26)
[2018-11-23] MEDS: MetFORMIN HCL 500 MG TABLET PO SCH ×2 (06:40→17:26)
[2018-11-23] MEDS: INSULIN LISPRO 100 UNITS/ML SQ PRN ×2 (06:41→11:29)
[2018-11-23] MEDS: HALOPERIDOL 5 MG TABLET PO PRN ×3 (06:48→17:46)
[2018-11-23 08:06] VITALS: BP 109/64
[2018-11-23] MEDS: DOCUSATE SODIUM 100 MG CAPSULE PO SCH (10:07)
[2018-11-23] MEDS: LORazepam 2 MG TABLET PO PRN ×2 (10:07→17:46)
[2018-11-23] MEDS: ATORVASTATIN CALCIUM 10 MG TABLET PO SCH (10:07)
[2018-11-23] MEDS: GABAPENTIN 300 MG CAPSULE PO SCH ×2 (10:07→17:26)
[2018-11-23] MEDS: OMEPRAZOLE 20 MG CAPSULE PO SCH (10:07)
[2018-11-23] MEDS: SERTRALINE HCL 50 MG TABLET PO SCH (10:07)
[2018-11-23] MEDS: LISINOPRIL 5 MG TABLET PO SCH (10:07)
[2018-11-23] MEDS: DIVALPROEX SODIUM 500 MG DR TABLET PO SCH ×2 (10:07→17:26)
[2018-11-23] MEDS: NICOTINE 21 MG/24 HOUR PATCH TD SCH (10:09)
[2018-11-23 11:29] LABS: GLUCOMETER DEV NAME(LOC) 3E.I; GLUCOSE,POINT OF CARE 150 MG/DL (70-110)
[2018-11-23 16:44] LABS: GLUCOMETER DEV NAME(LOC) 3E.I; GLUCOSE,POINT OF CARE 113 MG/DL (70-110)
[2018-11-23] MEDS: ZOLPIDEM TARTRATE 10 MG TABLET PO PRN (20:06)
[2018-11-23 21:29] LABS: GLUCOMETER DEV NAME(LOC) 3E.I; GLUCOSE,POINT OF CARE 109 MG/DL (70-110)
[2018-11-24] MEDS: LORazepam 2 MG TABLET PO PRN ×3 (05:32→17:23)
[2018-11-24 05:39] LABS: GLUCOMETER DEV NAME(LOC) 3E.I; GLUCOSE,POINT OF CARE 98 MG/DL (70-110)
[2018-11-24] MEDS: ZIPRASIDONE HCL 40 MG CAPSULE PO SCH ×2 (06:40→17:01)
[2018-11-24] MEDS: MetFORMIN HCL 500 MG TABLET PO SCH ×2 (06:41→17:01)
[2018-11-24 11:00] VITALS: BP 123/76
[2018-11-24] MEDS: LISINOPRIL 5 MG TABLET PO SCH (11:18)
[2018-11-24] MEDS: DIVALPROEX SODIUM 500 MG DR TABLET PO SCH ×2 (11:19→17:01)
[2018-11-24] MEDS: HALOPERIDOL 5 MG TABLET PO PRN ×2 (11:19→17:23)
[2018-11-24] MEDS: GABAPENTIN 300 MG CAPSULE PO SCH ×2 (11:19→17:01)
[2018-11-24] MEDS: SERTRALINE HCL 50 MG TABLET PO SCH (11:19)
[2018-11-24] MEDS: DOCUSATE SODIUM 100 MG CAPSULE PO SCH (11:19)
[2018-11-24] MEDS: OMEPRAZOLE 20 MG CAPSULE PO SCH (11:19)
[2018-11-24] MEDS: ATORVASTATIN CALCIUM 10 MG TABLET PO SCH (11:19)
[2018-11-24] MEDS: NICOTINE 21 MG/24 HOUR PATCH TD SCH (11:21)
[2018-11-24 11:24] LABS: GLUCOMETER DEV NAME(LOC) 3E.I; GLUCOSE,POINT OF CARE 142 MG/DL (70-110)
[2018-11-24] MEDS: INSULIN LISPRO 100 UNITS/ML SQ PRN ×2 (11:39→17:29)
[2018-11-24 12:22] VITALS: BP 91/52
[2018-11-24 17:34] LABS: GLUCOMETER DEV NAME(LOC) 3E.I; GLUCOSE,POINT OF CARE 156 MG/DL (70-110)
[2018-11-24 19:51] VITALS: BP_SYST 136; BP_SYST 142; BP_DIAS 79; BP_DIAS 84
[2018-11-24] MEDS: ZOLPIDEM TARTRATE 10 MG TABLET PO PRN (20:07)
[2018-11-24 20:18] LABS: GLUCOMETER DEV NAME(LOC) 3E.I; GLUCOSE,POINT OF CARE 119 MG/DL (70-110)
[2018-11-25 03:25] VITALS: BP 121/87
[2018-11-25] MEDS: HALOPERIDOL 5 MG TABLET PO PRN ×3 (03:30→17:34)
[2018-11-25] MEDS: LORazepam 2 MG TABLET PO PRN ×3 (03:30→17:34)
[2018-11-25 05:29] LABS: GLUCOMETER DEV NAME(LOC) 3E.I; GLUCOSE,POINT OF CARE 144 MG/DL (70-110)
[2018-11-25] MEDS: ZIPRASIDONE HCL 40 MG CAPSULE PO SCH ×2 (07:02→17:18)
[2018-11-25] MEDS: MetFORMIN HCL 500 MG TABLET PO SCH ×2 (07:02→17:18)
[2018-11-25] MEDS: INSULIN LISPRO 100 UNITS/ML SQ PRN ×3 (07:14→17:38)
[2018-11-25] MEDS: DOCUSATE SODIUM 100 MG CAPSULE PO SCH (08:31)
[2018-11-25] MEDS: ATORVASTATIN CALCIUM 10 MG TABLET PO SCH (08:31)
[2018-11-25] MEDS: SERTRALINE HCL 50 MG TABLET PO SCH (08:31)
[2018-11-25] MEDS: OMEPRAZOLE 20 MG CAPSULE PO SCH (08:32)
[2018-11-25] MEDS: GABAPENTIN 300 MG CAPSULE PO SCH ×2 (08:32→17:18)
[2018-11-25] MEDS: DIVALPROEX SODIUM 500 MG DR TABLET PO SCH ×2 (08:32→17:18)
[2018-11-25] MEDS: LISINOPRIL 5 MG TABLET PO SCH (08:33)
[2018-11-25] MEDS: NICOTINE 21 MG/24 HOUR PATCH TD SCH (08:34)
[2018-11-25 11:34] LABS: GLUCOMETER DEV NAME(LOC) 3E.I; GLUCOSE,POINT OF CARE 96 MG/DL (70-110)
[2018-11-25 17:44] LABS: GLUCOMETER DEV NAME(LOC) 3E.I; GLUCOSE,POINT OF CARE 178 MG/DL (70-110)
[2018-11-25 19:27] VITALS: BP 132/88
[2018-11-25] MEDS: ZOLPIDEM TARTRATE 10 MG TABLET PO PRN (20:02)
[2018-11-25 20:09] LABS: GLUCOMETER DEV NAME(LOC) 3E.I; GLUCOSE,POINT OF CARE 128 MG/DL (70-110)
[2018-11-26] MEDS: HALOPERIDOL 5 MG TABLET PO PRN ×4 (03:48→18:26)
[2018-11-26] MEDS: LORazepam 2 MG TABLET PO PRN ×4 (03:48→18:26)
[2018-11-26 05:39] LABS: GLUCOMETER DEV NAME(LOC) 3E.I; GLUCOSE,POINT OF CARE 103 MG/DL (70-110)
[2018-11-26] MEDS: ZIPRASIDONE HCL 40 MG CAPSULE PO SCH ×2 (06:52→17:08)
[2018-11-26] MEDS: INSULIN LISPRO 100 UNITS/ML SQ PRN ×2 (06:53→17:08)
[2018-11-26] MEDS: MetFORMIN HCL 500 MG TABLET PO SCH ×2 (06:53→17:08)
[2018-11-26] MEDS: DIVALPROEX SODIUM 500 MG DR TABLET PO SCH ×2 (09:13→17:08)
[2018-11-26] MEDS: SERTRALINE HCL 50 MG TABLET PO SCH (09:13)
[2018-11-26] MEDS: GABAPENTIN 300 MG CAPSULE PO SCH ×2 (09:13→17:08)
[2018-11-26] MEDS: LISINOPRIL 5 MG TABLET PO SCH (09:14)
[2018-11-26] MEDS: ATORVASTATIN CALCIUM 10 MG TABLET PO SCH (09:14)
[2018-11-26] MEDS: OMEPRAZOLE 20 MG CAPSULE PO SCH (09:14)
[2018-11-26] MEDS: DOCUSATE SODIUM 100 MG CAPSULE PO SCH (09:14)
[2018-11-26] MEDS: NICOTINE 21 MG/24 HOUR PATCH TD SCH (09:15)
[2018-11-26 11:03] LABS: GLUCOMETER DEV NAME(LOC) 3E.I; GLUCOSE,POINT OF CARE 90 MG/DL (70-110)
[2018-11-26 20:09] LABS: GLUCOMETER DEV NAME(LOC) 3E.I; GLUCOSE,POINT OF CARE 114 MG/DL (70-110)
[2018-11-26 20:14] VITALS: BP 109/63
[2018-11-26] MEDS: ZOLPIDEM TARTRATE 10 MG TABLET PO PRN (20:34)
[2018-11-27 05:29] LABS: GLUCOMETER DEV NAME(LOC) 3E.I; GLUCOSE,POINT OF CARE 106 MG/DL (70-110)
[2018-11-27] MEDS: LORazepam 2 MG TABLET PO PRN ×3 (05:31→16:42)
[2018-11-27] MEDS: MetFORMIN HCL 500 MG TABLET PO SCH ×2 (06:38→16:41)
[2018-11-27] MEDS: ZIPRASIDONE HCL 40 MG CAPSULE PO SCH ×2 (06:38→16:42)
[2018-11-27] MEDS: NICOTINE 21 MG/24 HOUR PATCH TD SCH (10:01)
[2018-11-27] MEDS: GABAPENTIN 300 MG CAPSULE PO SCH ×2 (10:01→16:41)
[2018-11-27] MEDS: DIVALPROEX SODIUM 500 MG DR TABLET PO SCH ×2 (10:01→16:41)
[2018-11-27] MEDS: ATORVASTATIN CALCIUM 10 MG TABLET PO SCH (10:01)
[2018-11-27] MEDS: OMEPRAZOLE 20 MG CAPSULE PO SCH (10:01)
[2018-11-27] MEDS: SERTRALINE HCL 50 MG TABLET PO SCH (10:01)
[2018-11-27] MEDS: DOCUSATE SODIUM 100 MG CAPSULE PO SCH (10:01)
[2018-11-27] MEDS: LISINOPRIL 5 MG TABLET PO SCH (10:01)
[2018-11-27] MEDS: HALOPERIDOL 5 MG TABLET PO PRN ×2 (10:11→16:42)
[2018-11-27 10:51] VITALS: BP 116/72
[2018-11-27] MEDS: ACETAMINOPHEN 325 MG TABLET PO PRN (10:51)
[2018-11-27 10:58] LABS: GLUCOMETER DEV NAME(LOC) 3E.I; GLUCOSE,POINT OF CARE 108 MG/DL (70-110)
[2018-11-27 16:54] LABS: GLUCOMETER DEV NAME(LOC) 3E.I; GLUCOSE,POINT OF CARE 136 MG/DL (70-110)
[2018-11-27] MEDS: ZOLPIDEM TARTRATE 10 MG TABLET PO PRN (20:06)
[2018-11-27 20:14] LABS: GLUCOMETER DEV NAME(LOC) 3E.I; GLUCOSE,POINT OF CARE 106 MG/DL (70-110)
[2018-11-28] MEDS: HALOPERIDOL 5 MG TABLET PO PRN ×3 (00:26→19:12)
[2018-11-28] MEDS: LORazepam 2 MG TABLET PO PRN ×3 (00:26→19:12)
[2018-11-28 00:27] VITALS: BP 128/82
[2018-11-28] MEDS: ACETAMINOPHEN 325 MG TABLET PO PRN (00:30)
[2018-11-28 06:19] LABS: GLUCOMETER DEV NAME(LOC) 3E.I; GLUCOSE,POINT OF CARE 105 MG/DL (70-110)
[2018-11-28] MEDS: MetFORMIN HCL 500 MG TABLET PO SCH ×2 (06:56→16:28)
[2018-11-28] MEDS: ZIPRASIDONE HCL 40 MG CAPSULE PO SCH ×2 (06:56→16:28)
[2018-11-28] MEDS: DOCUSATE SODIUM 100 MG CAPSULE PO SCH (09:56)
[2018-11-28] MEDS: ATORVASTATIN CALCIUM 10 MG TABLET PO SCH (09:56)
[2018-11-28] MEDS: OMEPRAZOLE 20 MG CAPSULE PO SCH (09:56)
[2018-11-28] MEDS: GABAPENTIN 300 MG CAPSULE PO SCH ×2 (09:57→16:28)
[2018-11-28] MEDS: DIVALPROEX SODIUM 500 MG DR TABLET PO SCH ×2 (09:57→16:28)
[2018-11-28] MEDS: SERTRALINE HCL 50 MG TABLET PO SCH (09:57)
[2018-11-28] MEDS: LISINOPRIL 5 MG TABLET PO SCH (09:57)
[2018-11-28] MEDS: NICOTINE 21 MG/24 HOUR PATCH TD SCH (10:03)
[2018-11-28 11:34] LABS: GLUCOMETER DEV NAME(LOC) 3E.I; GLUCOSE,POINT OF CARE 110 MG/DL (70-110)
[2018-11-28] MEDS: INSULIN LISPRO 100 UNITS/ML SQ PRN (16:37)
[2018-11-28 16:44] LABS: GLUCOMETER DEV NAME(LOC) 3E.I; GLUCOSE,POINT OF CARE 150 MG/DL (70-110)
[2018-11-28 20:44] LABS: GLUCOMETER DEV NAME(LOC) 3E.I; GLUCOSE,POINT OF CARE 102 MG/DL (70-110)
[2018-11-28] MEDS: ZOLPIDEM TARTRATE 10 MG TABLET PO PRN (21:04)
[2018-11-29 01:50] VITALS: BP 120/67
[2018-11-29] MEDS: LORazepam 2 MG TABLET PO PRN ×3 (01:57→17:44)
[2018-11-29 05:35] VITALS: BP 141/69
[2018-11-29] MEDS: ACETAMINOPHEN 325 MG TABLET PO PRN (05:37)
[2018-11-29] MEDS: ALBUTEROL SULFATE HFA 90 MCG/PUFF 8 GM INHALER IH PRN (05:38)
[2018-11-29 06:24] LABS: GLUCOMETER DEV NAME(LOC) 3E.I; GLUCOSE,POINT OF CARE 95 MG/DL (70-110)
[2018-11-29] MEDS: ZIPRASIDONE HCL 40 MG CAPSULE PO SCH ×2 (06:53→16:31)
[2018-11-29] MEDS: MetFORMIN HCL 500 MG TABLET PO SCH ×2 (06:53→16:32)
[2018-11-29] MEDS: ATORVASTATIN CALCIUM 10 MG TABLET PO SCH (08:51)
[2018-11-29] MEDS: OMEPRAZOLE 20 MG CAPSULE PO SCH (08:51)
[2018-11-29] MEDS: DOCUSATE SODIUM 100 MG CAPSULE PO SCH (08:51)
[2018-11-29] MEDS: GABAPENTIN 300 MG CAPSULE PO SCH ×2 (08:52→16:31)
[2018-11-29] MEDS: SERTRALINE HCL 50 MG TABLET PO SCH (08:52)
[2018-11-29] MEDS: LISINOPRIL 5 MG TABLET PO SCH (08:52)
[2018-11-29] MEDS: DIVALPROEX SODIUM 500 MG DR TABLET PO SCH ×2 (08:52→16:31)
[2018-11-29] MEDS: NICOTINE 21 MG/24 HOUR PATCH TD SCH (09:00)
[2018-11-29 11:34] LABS: GLUCOMETER DEV NAME(LOC) 3E.I; GLUCOSE,POINT OF CARE 101 MG/DL (70-110)
[2018-11-29 16:33] LABS: GLUCOMETER DEV NAME(LOC) 3E.I; GLUCOSE,POINT OF CARE 129 MG/DL (70-110)
[2018-11-29 19:38] VITALS: BP 136/77
[2018-11-29 20:13] LABS: GLUCOMETER DEV NAME(LOC) 3E.I; GLUCOSE,POINT OF CARE 89 MG/DL (70-110)
[2018-11-29] MEDS: ZOLPIDEM TARTRATE 10 MG TABLET PO PRN (20:24)
[2018-11-30 03:05] VITALS: BP 125/71
[2018-11-30] MEDS: ALBUTEROL SULFATE HFA 90 MCG/PUFF 8 GM INHALER IH PRN (03:09)
[2018-11-30] MEDS: LORazepam 2 MG TABLET PO PRN ×3 (03:09→16:37)
[2018-11-30 05:49] LABS: GLUCOMETER DEV NAME(LOC) 3E.I; GLUCOSE,POINT OF CARE 153 MG/DL (70-110)
[2018-11-30] MEDS: MetFORMIN HCL 500 MG TABLET PO SCH ×2 (06:31→17:17)
[2018-11-30] MEDS: ZIPRASIDONE HCL 40 MG CAPSULE PO SCH ×2 (06:31→17:17)
[2018-11-30] MEDS: INSULIN LISPRO 100 UNITS/ML SQ PRN ×3 (07:02→17:18)
[2018-11-30] MEDS: HALOPERIDOL 5 MG TABLET PO PRN ×3 (08:20→17:17)
[2018-11-30] MEDS: DOCUSATE SODIUM 100 MG CAPSULE PO SCH (08:20)
[2018-11-30] MEDS: OMEPRAZOLE 20 MG CAPSULE PO SCH (08:20)
[2018-11-30] MEDS: DIVALPROEX SODIUM 500 MG DR TABLET PO SCH ×2 (08:21→16:37)
[2018-11-30] MEDS: LISINOPRIL 5 MG TABLET PO SCH (08:21)
[2018-11-30] MEDS: ATORVASTATIN CALCIUM 10 MG TABLET PO SCH (08:21)
[2018-11-30] MEDS: GABAPENTIN 300 MG CAPSULE PO SCH ×2 (08:21→16:37)
[2018-11-30] MEDS: SERTRALINE HCL 50 MG TABLET PO SCH (08:21)
[2018-11-30] MEDS: NICOTINE 21 MG/24 HOUR PATCH TD SCH (08:23)
[2018-11-30 11:09] LABS: GLUCOMETER DEV NAME(LOC) 3E.I; GLUCOSE,POINT OF CARE 97 MG/DL (70-110)
[2018-11-30] MEDS: ACETAMINOPHEN 325 MG TABLET PO PRN (12:42)
[2018-11-30 16:34] LABS: GLUCOMETER DEV NAME(LOC) 3E.I; GLUCOSE,POINT OF CARE 144 MG/DL (70-110)
[2018-11-30 17:16] VITALS: BP 111/75
[2018-11-30] MEDS: ZOLPIDEM TARTRATE 10 MG TABLET PO PRN (20:23)
[2018-11-30 20:29] LABS: GLUCOMETER DEV NAME(LOC) 3E.I; GLUCOSE,POINT OF CARE 104 MG/DL (70-110)
[2018-12-01] MEDS: LORazepam 2 MG TABLET PO PRN ×3 (02:02→17:54)
[2018-12-01 02:05] VITALS: BP 138/81
[2018-12-01] MEDS: ALBUTEROL SULFATE HFA 90 MCG/PUFF 8 GM INHALER IH PRN (02:21)
[2018-12-01 06:19] LABS: GLUCOMETER DEV NAME(LOC) 3E.I; GLUCOSE,POINT OF CARE 102 MG/DL (70-110)
[2018-12-01] MEDS: INSULIN LISPRO 100 UNITS/ML SQ PRN ×4 (06:38→21:38)
[2018-12-01] MEDS: ZIPRASIDONE HCL 40 MG CAPSULE PO SCH ×2 (06:53→17:03)
[2018-12-01] MEDS: MetFORMIN HCL 500 MG TABLET PO SCH ×2 (06:54→17:04)
[2018-12-01] MEDS: GABAPENTIN 300 MG CAPSULE PO SCH ×2 (09:57→17:03)
[2018-12-01] MEDS: SERTRALINE HCL 50 MG TABLET PO SCH (09:57)
[2018-12-01] MEDS: DIVALPROEX SODIUM 500 MG DR TABLET PO SCH ×2 (09:57→17:03)
[2018-12-01] MEDS: DOCUSATE SODIUM 100 MG CAPSULE PO SCH (09:57)
[2018-12-01] MEDS: LISINOPRIL 5 MG TABLET PO SCH (09:57)
[2018-12-01] MEDS: NICOTINE 21 MG/24 HOUR PATCH TD SCH (09:57)
[2018-12-01] MEDS: ATORVASTATIN CALCIUM 10 MG TABLET PO SCH (09:57)
[2018-12-01] MEDS: OMEPRAZOLE 20 MG CAPSULE PO SCH (09:57)
[2018-12-01 11:14] LABS: GLUCOMETER DEV NAME(LOC) 3E.I; GLUCOSE,POINT OF CARE 108 MG/DL (70-110)
[2018-12-01 16:18] LABS: GLUCOMETER DEV NAME(LOC) 3E.I; GLUCOSE,POINT OF CARE 156 MG/DL (70-110)
[2018-12-01] MEDS: HALOPERIDOL 5 MG TABLET PO PRN (17:55)
[2018-12-01 19:58] VITALS: BP 128/77
[2018-12-01] MEDS: ZOLPIDEM TARTRATE 10 MG TABLET PO PRN (20:15)
[2018-12-01 20:19] LABS: GLUCOMETER DEV NAME(LOC) 3E.I; GLUCOSE,POINT OF CARE 145 MG/DL (70-110)
[2018-12-02] MEDS: LORazepam 2 MG TABLET PO PRN ×3 (05:21→17:04)
[2018-12-02] MEDS: ACETAMINOPHEN 325 MG TABLET PO PRN (05:21)
[2018-12-02 05:39] LABS: GLUCOMETER DEV NAME(LOC) 3E.I; GLUCOSE,POINT OF CARE 97 MG/DL (70-110)
[2018-12-02] MEDS: ZIPRASIDONE HCL 40 MG CAPSULE PO SCH ×2 (06:58→16:43)
[2018-12-02] MEDS: MetFORMIN HCL 500 MG TABLET PO SCH ×2 (06:58→16:43)
[2018-12-02] MEDS: INSULIN LISPRO 100 UNITS/ML SQ PRN (07:08)
[2018-12-02 08:00] VITALS: BP 133/79
[2018-12-02] MEDS: LISINOPRIL 5 MG TABLET PO SCH (09:34)
[2018-12-02] MEDS: ATORVASTATIN CALCIUM 10 MG TABLET PO SCH (09:34)
[2018-12-02] MEDS: DOCUSATE SODIUM 100 MG CAPSULE PO SCH (09:34)
[2018-12-02] MEDS: DIVALPROEX SODIUM 500 MG DR TABLET PO SCH ×2 (09:34→16:43)
[2018-12-02] MEDS: OMEPRAZOLE 20 MG CAPSULE PO SCH (09:34)
[2018-12-02] MEDS: GABAPENTIN 300 MG CAPSULE PO SCH ×2 (09:35→16:43)
[2018-12-02] MEDS: SERTRALINE HCL 50 MG TABLET PO SCH (09:35)
[2018-12-02] MEDS: NICOTINE 21 MG/24 HOUR PATCH TD SCH (09:36)
[2018-12-02 11:29] LABS: GLUCOMETER DEV NAME(LOC) 3E.I; GLUCOSE,POINT OF CARE 88 MG/DL (70-110)
[2018-12-02] MEDS: HALOPERIDOL 5 MG TABLET PO PRN ×2 (11:37→17:04)
[2018-12-02 16:49] LABS: GLUCOMETER DEV NAME(LOC) 3E.I; GLUCOSE,POINT OF CARE 133 MG/DL (70-110)
[2018-12-02 20:29] LABS: GLUCOMETER DEV NAME(LOC) 3E.I; GLUCOSE,POINT OF CARE 95 MG/DL (70-110)
[2018-12-02] MEDS: ZOLPIDEM TARTRATE 10 MG TABLET PO PRN (20:51)
[2018-12-02 22:33] VITALS: BP 140/81
[2018-12-03 04:57] VITALS: BP 135/82
[2018-12-03] MEDS: HALOPERIDOL 5 MG TABLET PO PRN ×3 (04:57→17:22)
[2018-12-03] MEDS: ACETAMINOPHEN 325 MG TABLET PO PRN (04:57)
[2018-12-03] MEDS: LORazepam 2 MG TABLET PO PRN ×3 (04:57→17:22)
[2018-12-03 05:29] LABS: GLUCOMETER DEV NAME(LOC) 3E.I; GLUCOSE,POINT OF CARE 100 MG/DL (70-110)
[2018-12-03] MEDS: MetFORMIN HCL 500 MG TABLET PO SCH ×2 (06:37→17:04)
[2018-12-03] MEDS: ZIPRASIDONE HCL 40 MG CAPSULE PO SCH ×2 (06:37→17:04)
[2018-12-03] MEDS: DOCUSATE SODIUM 100 MG CAPSULE PO SCH (08:16)
[2018-12-03] MEDS: GABAPENTIN 300 MG CAPSULE PO SCH ×2 (08:16→17:04)
[2018-12-03] MEDS: OMEPRAZOLE 20 MG CAPSULE PO SCH (08:16)
[2018-12-03] MEDS: DIVALPROEX SODIUM 500 MG DR TABLET PO SCH ×2 (08:17→17:04)
[2018-12-03] MEDS: ATORVASTATIN CALCIUM 10 MG TABLET PO SCH (08:17)
[2018-12-03] MEDS: LISINOPRIL 5 MG TABLET PO SCH (08:17)
[2018-12-03] MEDS: SERTRALINE HCL 50 MG TABLET PO SCH (08:17)
[2018-12-03] MEDS: NICOTINE 21 MG/24 HOUR PATCH TD SCH (08:18)
[2018-12-03 11:54] LABS: GLUCOMETER DEV NAME(LOC) 3E.I; GLUCOSE,POINT OF CARE 106 MG/DL (70-110)
[2018-12-03] MEDS: INSULIN LISPRO 100 UNITS/ML SQ PRN ×2 (12:00→17:36)
[2018-12-03 17:29] LABS: GLUCOMETER DEV NAME(LOC) 3E.I; GLUCOSE,POINT OF CARE 155 MG/DL (70-110)
[2018-12-03] MEDS: ZOLPIDEM TARTRATE 10 MG TABLET PO PRN (20:11)
[2018-12-03 20:19] LABS: GLUCOMETER DEV NAME(LOC) 3E.I; GLUCOSE,POINT OF CARE 98 MG/DL (70-110)
[2018-12-04 02:53] VITALS: BP 126/81
[2018-12-04] MEDS: ACETAMINOPHEN 325 MG TABLET PO PRN ×2 (03:02→12:48)
[2018-12-04] MEDS: LORazepam 2 MG TABLET PO PRN ×4 (03:03→18:02)
[2018-12-04] MEDS: HALOPERIDOL 5 MG TABLET PO PRN ×4 (03:03→18:02)
[2018-12-04 05:34] LABS: GLUCOMETER DEV NAME(LOC) 3E.I; GLUCOSE,POINT OF CARE 129 MG/DL (70-110)
[2018-12-04] MEDS: ZIPRASIDONE HCL 40 MG CAPSULE PO SCH ×2 (07:02→18:02)
[2018-12-04] MEDS: MetFORMIN HCL 500 MG TABLET PO SCH ×2 (07:02→18:02)
[2018-12-04] MEDS: INSULIN LISPRO 100 UNITS/ML SQ PRN (07:06)
[2018-12-04] MEDS: OMEPRAZOLE 20 MG CAPSULE PO SCH (07:48)
[2018-12-04] MEDS: GABAPENTIN 300 MG CAPSULE PO SCH ×2 (07:48→18:02)
[2018-12-04] MEDS: ATORVASTATIN CALCIUM 10 MG TABLET PO SCH (07:48)
[2018-12-04] MEDS: DIVALPROEX SODIUM 500 MG DR TABLET PO SCH ×2 (07:48→18:02)
[2018-12-04] MEDS: DOCUSATE SODIUM 100 MG CAPSULE PO SCH (07:48)
[2018-12-04] MEDS: SERTRALINE HCL 50 MG TABLET PO SCH (07:49)
[2018-12-04] MEDS: NICOTINE 21 MG/24 HOUR PATCH TD SCH (07:49)
[2018-12-04] MEDS: LISINOPRIL 5 MG TABLET PO SCH (07:49)
[2018-12-04 17:14] VITALS: BP 107/53
[2018-12-04 17:45] LABS: GLUCOMETER DEV NAME(LOC) 3E.I; GLUCOSE,POINT OF CARE 130 MG/DL (70-110)
[2018-12-04 20:39] LABS: GLUCOMETER DEV NAME(LOC) 3E.I; GLUCOSE,POINT OF CARE 128 MG/DL (70-110)
[2018-12-04] MEDS: ZOLPIDEM TARTRATE 10 MG TABLET PO PRN (21:04)
[2018-12-05 05:39] LABS: GLUCOMETER DEV NAME(LOC) 3E.I; GLUCOSE,POINT OF CARE 101 MG/DL (70-110)
[2018-12-05 05:43] VITALS: BP 132/89
[2018-12-05] MEDS: LORazepam 2 MG TABLET PO PRN ×3 (05:49→20:37)
[2018-12-05] MEDS: HALOPERIDOL 5 MG TABLET PO PRN ×3 (05:50→20:37)
[2018-12-05] MEDS: ACETAMINOPHEN 325 MG TABLET PO PRN (05:50)
[2018-12-05] MEDS: MetFORMIN HCL 500 MG TABLET PO SCH ×2 (06:29→17:09)
[2018-12-05] MEDS: ZIPRASIDONE HCL 40 MG CAPSULE PO SCH ×2 (06:29→17:10)
[2018-12-05] MEDS: ATORVASTATIN CALCIUM 10 MG TABLET PO SCH (09:22)
[2018-12-05] MEDS: LISINOPRIL 5 MG TABLET PO SCH (09:22)
[2018-12-05] MEDS: DOCUSATE SODIUM 100 MG CAPSULE PO SCH (09:22)
[2018-12-05] MEDS: DIVALPROEX SODIUM 500 MG DR TABLET PO SCH ×2 (09:22→16:16)
[2018-12-05] MEDS: OMEPRAZOLE 20 MG CAPSULE PO SCH (09:22)
[2018-12-05] MEDS: SERTRALINE HCL 50 MG TABLET PO SCH (09:22)
[2018-12-05] MEDS: GABAPENTIN 400 MG CAPSULE PO SCH ×3 (09:23→16:16)
[2018-12-05] MEDS: NICOTINE 21 MG/24 HOUR PATCH TD SCH (09:24)
[2018-12-05 10:34] LABS: GLUCOMETER DEV NAME(LOC) 3E.I; GLUCOSE,POINT OF CARE 91 MG/DL (70-110)
[2018-12-05 16:14] LABS: GLUCOMETER DEV NAME(LOC) 3E.I; GLUCOSE,POINT OF CARE 182 MG/DL (70-110)
[2018-12-05 16:30] VITALS: BP 129/75
[2018-12-05] MEDS: INSULIN LISPRO 100 UNITS/ML SQ PRN ×2 (17:10→21:10)
[2018-12-05 20:09] LABS: GLUCOMETER DEV NAME(LOC) 3E.I; GLUCOSE,POINT OF CARE 185 MG/DL (70-110)
[2018-12-05] MEDS: ZOLPIDEM TARTRATE 10 MG TABLET PO PRN (21:46)
[2018-12-06 05:44] LABS: GLUCOMETER DEV NAME(LOC) 3E.I; GLUCOSE,POINT OF CARE 109 MG/DL (70-110)
[2018-12-06] MEDS: ZIPRASIDONE HCL 40 MG CAPSULE PO SCH ×2 (07:00→16:55)
[2018-12-06] MEDS: INSULIN LISPRO 100 UNITS/ML SQ PRN ×2 (07:00→17:28)
[2018-12-06] MEDS: MetFORMIN HCL 500 MG TABLET PO SCH ×2 (07:00→16:55)
[2018-12-06] MEDS: LISINOPRIL 5 MG TABLET PO SCH (08:11)
[2018-12-06] MEDS: OMEPRAZOLE 20 MG CAPSULE PO SCH (08:11)
[2018-12-06] MEDS: DIVALPROEX SODIUM 500 MG DR TABLET PO SCH ×2 (08:11→16:06)
[2018-12-06] MEDS: GABAPENTIN 400 MG CAPSULE PO SCH ×3 (08:11→16:06)
[2018-12-06] MEDS: SERTRALINE HCL 50 MG TABLET PO SCH (08:11)
[2018-12-06] MEDS: ATORVASTATIN CALCIUM 10 MG TABLET PO SCH (08:11)
[2018-12-06 08:12] VITALS: BP 138/74
[2018-12-06] MEDS: NICOTINE 21 MG/24 HOUR PATCH TD SCH (08:12)
[2018-12-06] MEDS: ACETAMINOPHEN 325 MG TABLET PO PRN (08:13)
[2018-12-06] MEDS: DOCUSATE SODIUM 100 MG CAPSULE PO SCH (08:13)
[2018-12-06 10:49] LABS: GLUCOMETER DEV NAME(LOC) 3E.I; GLUCOSE,POINT OF CARE 103 MG/DL (70-110)
[2018-12-06] MEDS: HALOPERIDOL 5 MG TABLET PO PRN ×2 (11:00→16:07)
[2018-12-06] MEDS: LORazepam 2 MG TABLET PO PRN ×2 (11:01→16:06)
[2018-12-06 16:33] LABS: GLUCOMETER DEV NAME(LOC) 3E.I; GLUCOSE,POINT OF CARE 170 MG/DL (70-110)
[2018-12-06] MEDS ORDERED: LORazepam 2 MG/ML VIAL IM ONE (17:45)
[2018-12-06] MEDS ORDERED: HALOPERIDOL LACTATE 5 MG/ML VIAL IM ONE (17:45)
[2018-12-06 20:44] LABS: GLUCOMETER DEV NAME(LOC) 3E.C; GLUCOSE,POINT OF CARE 136 MG/DL (70-110)
[2018-12-06] MEDS: ZOLPIDEM TARTRATE 10 MG TABLET PO PRN (21:01)
[2018-12-07 06:45] VITALS: BP 126/65
[2018-12-07 06:49] LABS: GLUCOMETER DEV NAME(LOC) 3E.C; GLUCOSE,POINT OF CARE 93 MG/DL (70-110)
[2018-12-07] MEDS: LORazepam 2 MG TABLET PO PRN ×2 (06:54→14:59)
[2018-12-07] MEDS: HALOPERIDOL 5 MG TABLET PO PRN ×2 (06:54→14:59)
[2018-12-07] MEDS: ACETAMINOPHEN 325 MG TABLET PO PRN (07:05)
[2018-12-07] MEDS: ZIPRASIDONE HCL 40 MG CAPSULE PO SCH ×2 (07:08→17:32)
[2018-12-07] MEDS: MetFORMIN HCL 500 MG TABLET PO SCH ×2 (07:09→17:32)
[2018-12-07] MEDS: INSULIN LISPRO 100 UNITS/ML SQ PRN ×3 (07:25→20:44)
[2018-12-07 07:54] VITALS: BP 114/56
[2018-12-07 08:00] VITALS: BP 114/60
[2018-12-07] MEDS: OMEPRAZOLE 20 MG CAPSULE PO SCH (09:11)
[2018-12-07] MEDS: SERTRALINE HCL 50 MG TABLET PO SCH (09:11)
[2018-12-07] MEDS: ATORVASTATIN CALCIUM 10 MG TABLET PO SCH (09:11)
[2018-12-07] MEDS: DOCUSATE SODIUM 100 MG CAPSULE PO SCH (09:11)
[2018-12-07] MEDS: GABAPENTIN 400 MG CAPSULE PO SCH ×3 (09:11→16:34)
[2018-12-07] MEDS: LISINOPRIL 5 MG TABLET PO SCH (09:11)
[2018-12-07] MEDS: DIVALPROEX SODIUM 500 MG DR TABLET PO SCH ×2 (09:11→16:34)
[2018-12-07] MEDS: NICOTINE 21 MG/24 HOUR PATCH TD SCH (09:35)
[2018-12-07 12:14] LABS: GLUCOMETER DEV NAME(LOC) 3E.C; GLUCOSE,POINT OF CARE 115 MG/DL (70-110)
[2018-12-07 16:39] LABS: GLUCOMETER DEV NAME(LOC) 3E.C; GLUCOSE,POINT OF CARE 159 MG/DL (70-110)
[2018-12-07 20:19] LABS: GLUCOMETER DEV NAME(LOC) 3E.C; GLUCOSE,POINT OF CARE 157 MG/DL (70-110)
[2018-12-07] MEDS: ZOLPIDEM TARTRATE 10 MG TABLET PO PRN (20:22)
[2018-12-08] MEDS: ALBUTEROL SULFATE HFA 90 MCG/PUFF 8 GM INHALER IH PRN (01:36)
[2018-12-08 01:49] VITALS: BP 122/83
[2018-12-08] MEDS: LORazepam 2 MG TABLET PO PRN ×3 (01:52→16:50)
[2018-12-08] MEDS: ACETAMINOPHEN 325 MG TABLET PO PRN (01:53)
[2018-12-08] MEDS: HALOPERIDOL 5 MG TABLET PO PRN ×3 (04:19→16:50)
[2018-12-08 07:04] LABS: GLUCOMETER DEV NAME(LOC) 3E.C; GLUCOSE,POINT OF CARE 145 MG/DL (70-110)
[2018-12-08] MEDS: INSULIN LISPRO 100 UNITS/ML SQ PRN ×2 (07:04→17:51)
[2018-12-08] MEDS: ZIPRASIDONE HCL 40 MG CAPSULE PO SCH ×2 (07:07→17:30)
[2018-12-08] MEDS: MetFORMIN HCL 500 MG TABLET PO SCH ×2 (07:07→17:30)
[2018-12-08 08:25] VITALS: BP 116/73
[2018-12-08] MEDS: DOCUSATE SODIUM 100 MG CAPSULE PO SCH (10:34)
[2018-12-08] MEDS: GABAPENTIN 400 MG CAPSULE PO SCH ×3 (10:34→17:30)
[2018-12-08] MEDS: SERTRALINE HCL 50 MG TABLET PO SCH (10:34)
[2018-12-08] MEDS: LISINOPRIL 5 MG TABLET PO SCH (10:34)
[2018-12-08] MEDS: DIVALPROEX SODIUM 500 MG DR TABLET PO SCH ×2 (10:35→17:45)
[2018-12-08] MEDS: OMEPRAZOLE 20 MG CAPSULE PO SCH (10:35)
[2018-12-08] MEDS: ATORVASTATIN CALCIUM 10 MG TABLET PO SCH (10:35)
[2018-12-08] MEDS: NICOTINE 21 MG/24 HOUR PATCH TD SCH (10:36)
[2018-12-08 12:00] LABS: GLUCOMETER DEV NAME(LOC) 3E.C; GLUCOSE,POINT OF CARE 97 MG/DL (70-110)
[2018-12-08 16:57] VITALS: BP 139/91
[2018-12-08 17:35] LABS: GLUCOMETER DEV NAME(LOC) 3E.C; GLUCOSE,POINT OF CARE 276 MG/DL (70-110)
[2018-12-08] MEDS ORDERED: GABA-533 PO (19:06)
[2018-12-08] MEDS: ZOLPIDEM TARTRATE 10 MG TABLET PO PRN (20:46)
[2018-12-08 20:49] LABS: GLUCOMETER DEV NAME(LOC) 3E.C; GLUCOSE,POINT OF CARE 92 MG/DL (70-110)
[2018-12-09] MEDS: LORazepam 2 MG TABLET PO PRN ×2 (02:29→08:04)
[2018-12-09 06:49] LABS: GLUCOMETER DEV NAME(LOC) 3E.C; GLUCOSE,POINT OF CARE 91 MG/DL (70-110)
[2018-12-09] MEDS: MetFORMIN HCL 500 MG TABLET PO SCH (07:05)
[2018-12-09] MEDS: ZIPRASIDONE HCL 40 MG CAPSULE PO SCH (07:05)
[2018-12-09] MEDS: LISINOPRIL 5 MG TABLET PO SCH (08:04)
[2018-12-09] MEDS: SERTRALINE HCL 50 MG TABLET PO SCH (08:04)
[2018-12-09] MEDS: GABAPENTIN 400 MG CAPSULE PO SCH ×2 (08:04→11:55)
[2018-12-09] MEDS: HALOPERIDOL 5 MG TABLET PO PRN (08:04)
[2018-12-09] MEDS: NICOTINE 21 MG/24 HOUR PATCH TD SCH (08:04)
[2018-12-09] MEDS: ATORVASTATIN CALCIUM 10 MG TABLET PO SCH (08:04)
[2018-12-09] MEDS: DIVALPROEX SODIUM 500 MG DR TABLET PO SCH (08:05)
[2018-12-09] MEDS: OMEPRAZOLE 20 MG CAPSULE PO SCH (08:05)
[2018-12-09] MEDS: DOCUSATE SODIUM 100 MG CAPSULE PO SCH (08:06)
[2018-12-09] MEDS: ALBUTEROL SULFATE HFA 90 MCG/PUFF 8 GM INHALER IH PRN (08:07)
[2018-12-09 08:12] VITALS: BP 143/84
[2018-12-09 11:39] LABS: GLUCOMETER DEV NAME(LOC) 3E.C; GLUCOSE,POINT OF CARE 129 MG/DL (70-110)
== END 2018-12-09 12:00 | disposition home or self-care (01) | DRG 750 ==
LOC: EMS 18:19 → 3EI 11-17 02:24 → 3EC 12-06 19:21
PROVIDERS: ADMIT Psychiatry & Neurology Psychiatry; ATTEND Psychiatry & Neurology Psychiatry
DX: F25.0 Schizoaffective disorder, bipolar type (principal); E11.9 Type 2 diabetes mellitus without complications; R45.851 Suicidal ideations; E78.00 Pure hypercholesterolemia, unspecified; I10 Essential (primary) hypertension; F17.210 Nicotine dependence, cigarettes, uncomplicated; Z91.19 Patient's noncompliance with other medical treatment and regimen; Z88.6 Allergy status to analgesic agent; Z88.2 Allergy status to sulfonamides; Z79.899 Other long term (current) drug therapy
CPT/HCPCS: 82948; 83036; 83605; 87081; 93005; G0480; G0481; J1630; J2060; J3535; Q0162

== ENCOUNTER 2019-03-22 12:34 | Emergency (ER) | payer MEDICAID, OTHER ==
[~2019-03-22] VITALS: Ht 170.2 cm; Wt 156.8 kg
[~2019-03-22 12:34] MED LIST changes: +GABA-533 PO; +OMEP10 PO
[2019-03-22 13:41] LABS: BASOPHILS % (AUTO) 0.6 % (0.0-2.0); EOSINOPHILS % (AUTO) 0.7 % (1.0-6.0); HEMATOCRIT 45.1 % (36-46); HEMOGLOBIN 14.8 g/dL (12.0-16.0); LYMPHOCYTES # (AUTO) 2.1 K/uL (1.0-4.8); LYMPHOCYTES % (AUTO) 26.5 % (22.0-44.0); MEAN CORPUSCULAR HEMOGLOBIN 29.1 pg (26.0-34.0); MEAN CORPUSCULAR HGB CONC 32.8 G/dL (31.0-37.0); MEAN CORPUSCULAR VOLUME 89 fL (80-100); MONOCYTES # (AUTO) 0.5 K/uL (0.1-1.0); MONOCYTES % (AUTO) 6.6 % (2.0-9.0); NEUTROPHILS # (AUTO) 5.2 K/uL (1.8-7.7); NEUTROPHILS % (AUTO) 65.6 % (40.0-70.0); PLATELET COUNT (AUTO) 301 K/uL (150-450); RED BLOOD CELL COUNT(AUTO) 5.08 MIL/uL (4.00-5.20); RED CELL DISTRIBUTION WIDTH 15.1 % (11.5-14.5)
[2019-03-22 13:51] LABS: ANION GAP 9 mmol/L (8-16); CALCIUM, TOTAL 8.8 mg/dL (8.8-10.5); CARBON DIOXIDE 27 mmol/L (22-29); CHLORIDE 103 mmol/L (98-107); CREATININE 0.95 mg/dL (0.60-1.30); GLOMERULAR FILTR. RATE CALC > 60 mL/min (>60); GLUCOSE,RANDOM 224 mg/dL (70-110); POTASSIUM 4.1 mmol/L (3.5-5.1); SODIUM SERUM 139 mmol/L (136-145); UREA NITROGEN, BLOOD 19 mg/dL (7-18)
[2019-03-22 14:05] LABS: ALANINE AMINOTRANSFERASE 16 U/L (12-78); ALBUMIN 3.2 g/dL (3.4-5.0); ALKALINE PHOSPHATASE 101 U/L (46-116); ASPARTATE AMINOTRANSFERASE 10 U/L (15-37); BILIRUBIN,TOTAL 0.3 mg/dL (0.1-1.0); HCG,QUANTITATIVE < 1 mIU/mL (0-6); TOTAL PROTEIN, SERUM 7.3 g/dL (6.4-8.2)
[2019-03-22] MEDS ORDERED: SODIUM CHLORIDE 0.9% 1,000 ML IV ONE (14:45)
[2019-03-22] MEDS ORDERED: PB/HYOSCY/ATR/SCOP/LIDO/MAALOX 55 ML BOTTLE PO ONE (15:00)
[2019-03-22] MEDS ORDERED: FAMOTIDINE 10 MG/ML 2 ML VIAL IVP ONE (15:00)
[2019-03-22 16:34] VITALS: BP 139/86
== END 2019-03-22 17:08 | disposition left against medical advice (07) ==
LOC: EMS 12:36
DX: N93.9 Abnormal uterine and vaginal bleeding, unspecified (principal); R10.13 Epigastric pain; E11.9 Type 2 diabetes mellitus without complications; F32.9 Major depressive disorder, single episode, unspecified; E78.00 Pure hypercholesterolemia, unspecified; F20.9 Schizophrenia, unspecified; F17.210 Nicotine dependence, cigarettes, uncomplicated; F19.90 Other psychoactive substance use, unspecified, uncomplicated; Z88.6 Allergy status to analgesic agent; Z88.1 Allergy status to other antibiotic agents; Z79.84 Long term (current) use of oral hypoglycemic drugs; Z79.899 Other long term (current) drug therapy
CPT/HCPCS: 36415; 80053; 81025; 82962; 84702; 85025; 86850; 86900; 86901; 96374; 99285; J3490; J7030

== ENCOUNTER 2019-06-14 19:13 | Inpatient (IN) | payer MEDICAID, OTHER ==
[~2019-06-14] VITALS: Ht 170.2 cm; Wt 159.9 kg
[2019-06-14 20:50] LABS: GLUCOSE,POINT OF CARE 187 MG/DL (70-110)
[2019-06-14 22:56] LABS: ANION GAP 4 mmol/L (8-16); CALCIUM, TOTAL 9.1 mg/dL (8.8-10.5); CARBON DIOXIDE 29 mmol/L (22-29); CHLORIDE 103 mmol/L (98-107); CREATININE 0.99 mg/dL (0.60-1.30); GLOMERULAR FILTR. RATE CALC > 60 mL/min (>60); GLUCOSE,RANDOM 170 mg/dL (70-110); POTASSIUM 4.5 mmol/L (3.5-5.1); SODIUM SERUM 136 mmol/L (136-145); UREA NITROGEN, BLOOD 18 mg/dL (7-18)
[2019-06-14 23:02] LABS: ALANINE AMINOTRANSFERASE 18 U/L (12-78); ALKALINE PHOSPHATASE 114 U/L (46-116); ASPARTATE AMINOTRANSFERASE 7 U/L (15-37); BILIRUBIN,TOTAL 0.2 mg/dL (0.1-1.0); TOTAL PROTEIN, SERUM 7.1 g/dL (6.4-8.2)
[2019-06-14 23:10] LABS: BASOPHILS % (AUTO) 0.4 % (0.0-2.0); EOSINOPHILS % (AUTO) 0.6 % (1.0-6.0); HEMATOCRIT 45.9 % (36-46); HEMOGLOBIN 15.4 g/dL (12.0-16.0); LYMPHOCYTES # (AUTO) 2.6 K/uL (1.0-4.8); LYMPHOCYTES % (AUTO) 27.9 % (22.0-44.0); MEAN CORPUSCULAR HEMOGLOBIN 29.4 pg (26.0-34.0); MEAN CORPUSCULAR HGB CONC 33.5 G/dL (31.0-37.0); MEAN CORPUSCULAR VOLUME 88 fL (80-100); MONOCYTES # (AUTO) 0.6 K/uL (0.1-1.0); MONOCYTES % (AUTO) 6.1 % (2.0-9.0); NEUTROPHILS # (AUTO) 6.2 K/uL (1.8-7.7); PLATELET COUNT (AUTO) 282 K/uL (150-450); RED BLOOD CELL COUNT(AUTO) 5.22 MIL/uL (4.00-5.20)
[2019-06-14 23:59] LABS: AMPHET/METH SCREEN,URINE POSITIVE (NEGATIVE); BARBITURATE SCREEN, URINE NEGATIVE (NEGATIVE); BENZODIAZEPINES SCREEN,URINE NEGATIVE (NEGATIVE); CANNABINOID SCREEN,URINE POSITIVE (NEGATIVE); COCAINE SCREEN,URINE NEGATIVE (NEGATIVE); METHADONE SCREEN, URINE NEGATIVE (NEGATIVE); OPIATE SCREEN,URINE NEGATIVE (NEGATIVE)
[2019-06-15 00:02] LABS: PHENCYCLIDINE SCREEN,URINE NEGATIVE (NEGATIVE)
[2019-06-15] MEDS ORDERED: HALOPERIDOL 5 MG TABLET PO PRN (00:15)
[2019-06-15] MEDS: ZOLPIDEM TARTRATE 10 MG TABLET PO PRN (02:54)
[2019-06-15] MEDS: LORazepam 2 MG TABLET PO PRN ×2 (02:54→09:30)
[2019-06-15 03:13] VITALS: BP 130/101
[2019-06-15] MEDS: MetFORMIN HCL 500 MG TABLET PO SCH ×2 (07:08→16:23)
[2019-06-15] MEDS ORDERED: ACETAMINOPHEN 325 MG TABLET PO PRN (08:00)
[2019-06-15] MEDS ORDERED: DEXTROSE 50%-WATER 25 GM/50 ML SYRINGE IVP PRN (08:00)
[2019-06-15] MEDS ORDERED: PNEUMOCOCCAL VACCINE POLYVALENT 0.5 ML VIAL [PPSV23] IM ONE (08:00)
[2019-06-15] MEDS ORDERED: ONDANSETRON HCL 4 MG TABLET PO PRN (08:00)
[2019-06-15] MEDS ORDERED: PETROLATUM,WHITE 28 GM JELLY TP PRN (08:00)
[2019-06-15] MEDS ORDERED: INFLUENZA VIRUS VACCINE QVS 2019-20 (3YR+)/PF 60 MCG/0.5 ML SYRINGE IM ONE (08:00)
[2019-06-15] MEDS ORDERED: MAG HYDROX/AL HYDROX/SIMETH ES 30 ML SUSPENSION UDCUP PO PRN (08:00)
[2019-06-15] MEDS ORDERED: CloNIDine HCL 0.1 MG TABLET PO PRN (08:00)
[2019-06-15] MEDS ORDERED: BENZOCAINE/MENTHOL LOZENGE MM PRN (08:00)
[2019-06-15] MEDS ORDERED: MAGNESIUM HYDROXIDE SUSPENSION 30 ML UDCUP PO PRN (08:00)
[2019-06-15] MEDS ORDERED: BACITRACIN 28.4 GM OINTMENT TP PRN (08:00)
[2019-06-15] MEDS ORDERED: ALBUTEROL SULFATE HFA 90 MCG/PUFF 8 GM INHALER IH PRN (08:00)
[2019-06-15] MEDS ORDERED: LOPERAMIDE HCL 2 MG CAPSULE PO PRN (08:00)
[2019-06-15] MEDS ORDERED: GABAPENTIN 400 MG CAPSULE PO SCH (09:00)
[2019-06-15] MEDS ORDERED: LISINOPRIL 5 MG TABLET PO SCH ×2 (09:00)
[2019-06-15] MEDS: OMEPRAZOLE 20 MG CAPSULE PO SCH (09:17)
[2019-06-15] MEDS: ATORVASTATIN CALCIUM 10 MG TABLET PO SCH (09:18)
[2019-06-15] MEDS: DOCUSATE SODIUM 100 MG CAPSULE PO SCH (09:18)
[2019-06-15] MEDS ORDERED: GABAPENTIN 300 MG CAPSULE ONE (09:24)
[2019-06-15 10:10] VITALS: BP 112/75
[2019-06-15] MEDS: LISINOPRIL 5 MG TABLET PO SCH (11:23)
[2019-06-15 11:49] LABS: GLUCOMETER DEV NAME(LOC) 3E.I 2; GLUCOSE,POINT OF CARE 123 MG/DL (70-110)
[2019-06-15] MEDS: GABAPENTIN 300 MG CAPSULE PO SCH ×2 (12:25→16:23)
[2019-06-15 17:23] VITALS: BP 105/53
[2019-06-15] MEDS: DIVALPROEX SODIUM 500 MG DR TABLET PO SCH (17:23)
[2019-06-15] MEDS: ZIPRASIDONE HCL 40 MG CAPSULE PO SCH (17:23)
[2019-06-15 18:21] LABS: GLUCOMETER DEV NAME(LOC) 3E.I 2; GLUCOSE,POINT OF CARE 135 MG/DL (70-110)
[2019-06-15] MEDS ORDERED: GABAPENTIN 300 MG CAPSULE PO SCH (19:00)
[2019-06-16] MEDS: ZIPRASIDONE HCL 40 MG CAPSULE PO SCH ×2 (06:42→16:37)
[2019-06-16] MEDS: MetFORMIN HCL 500 MG TABLET PO SCH ×2 (06:42→16:37)
[2019-06-16 08:55] VITALS: BP 128/66
[2019-06-16 09:17] LABS: CHOL/HDL RATIO 6.1 (3.9-5.7)
[2019-06-16] MEDS: OMEPRAZOLE 20 MG CAPSULE PO SCH (09:21)
[2019-06-16] MEDS: GABAPENTIN 400 MG CAPSULE PO SCH ×3 (09:22→16:37)
[2019-06-16] MEDS: DOCUSATE SODIUM 100 MG CAPSULE PO SCH (09:22)
[2019-06-16] MEDS: ATORVASTATIN CALCIUM 10 MG TABLET PO SCH (09:22)
[2019-06-16] MEDS: DIVALPROEX SODIUM 500 MG DR TABLET PO SCH ×2 (09:22→16:37)
[2019-06-16] MEDS: LISINOPRIL 5 MG TABLET PO SCH (09:22)
[2019-06-16] MEDS: SERTRALINE HCL 50 MG TABLET PO SCH (09:24)
[2019-06-16 11:48] LABS: GLUCOMETER DEV NAME(LOC) 3E.I 2; GLUCOSE,POINT OF CARE 120 MG/DL (70-110)
[2019-06-16 11:53] LABS: GLUCOMETER DEV NAME(LOC) 3E.I 2; GLUCOSE,POINT OF CARE 104 MG/DL (70-110)
[2019-06-16] MEDS: INSULIN LISPRO 100 UNITS/ML SQ PRN ×2 (16:45→20:58)
[2019-06-16] MEDS: LORazepam 2 MG TABLET PO PRN (16:46)
[2019-06-16 17:10] LABS: GLUCOMETER DEV NAME(LOC) 3E.I 2; GLUCOSE,POINT OF CARE 188 MG/DL (70-110)
[2019-06-16 17:24] VITALS: BP 111/86
[2019-06-16 21:07] LABS: GLUCOMETER DEV NAME(LOC) 3E.I 2; GLUCOSE,POINT OF CARE 151 MG/DL (70-110)
[2019-06-17] MEDS: LORazepam 2 MG TABLET PO PRN ×2 (03:12→16:31)
[2019-06-17 06:10] LABS: GLUCOMETER DEV NAME(LOC) 3E.I 2; GLUCOSE,POINT OF CARE 144 MG/DL (70-110)
[2019-06-17 06:13] VITALS: BP 115/79
[2019-06-17] MEDS: INSULIN LISPRO 100 UNITS/ML SQ PRN ×2 (06:30→11:36)
[2019-06-17] MEDS: ZIPRASIDONE HCL 40 MG CAPSULE PO SCH ×2 (06:47→16:31)
[2019-06-17] MEDS: MetFORMIN HCL 500 MG TABLET PO SCH ×2 (06:47→16:31)
[2019-06-17] MEDS: GABAPENTIN 400 MG CAPSULE PO SCH ×3 (09:08→16:31)
[2019-06-17] MEDS: OMEPRAZOLE 20 MG CAPSULE PO SCH (09:08)
[2019-06-17] MEDS: LISINOPRIL 5 MG TABLET PO SCH (09:08)
[2019-06-17] MEDS: DIVALPROEX SODIUM 500 MG DR TABLET PO SCH ×2 (09:08→16:31)
[2019-06-17] MEDS: SERTRALINE HCL 50 MG TABLET PO SCH (09:08)
[2019-06-17] MEDS: DOCUSATE SODIUM 100 MG CAPSULE PO SCH (09:08)
[2019-06-17] MEDS: ATORVASTATIN CALCIUM 10 MG TABLET PO SCH (09:08)
[2019-06-17 10:15] VITALS: BP 105/74
[2019-06-17 11:25] LABS: GLUCOMETER DEV NAME(LOC) 3E.I 2; GLUCOSE,POINT OF CARE 169 MG/DL (70-110)
[2019-06-17 16:41] LABS: GLUCOMETER DEV NAME(LOC) 3E.I 2; GLUCOSE,POINT OF CARE 125 MG/DL (70-110)
[2019-06-17 19:34] VITALS: BP 121/74
[2019-06-17] MEDS: ZOLPIDEM TARTRATE 10 MG TABLET PO PRN (20:32)
[2019-06-17 20:49] LABS: GLUCOMETER DEV NAME(LOC) 3E.I 2; GLUCOSE,POINT OF CARE 129 MG/DL (70-110)
[2019-06-18 05:36] LABS: GLUCOMETER DEV NAME(LOC) 3E.I 2; GLUCOSE,POINT OF CARE 111 MG/DL (70-110)
[2019-06-18] MEDS: ZIPRASIDONE HCL 40 MG CAPSULE PO SCH (06:51)
[2019-06-18] MEDS: MetFORMIN HCL 500 MG TABLET PO SCH (06:51)
[2019-06-18 09:00] VITALS: BP 105/54
[2019-06-18] MEDS: DIVALPROEX SODIUM 500 MG DR TABLET PO SCH (09:16)
[2019-06-18] MEDS: OMEPRAZOLE 20 MG CAPSULE PO SCH (09:16)
[2019-06-18] MEDS: GABAPENTIN 400 MG CAPSULE PO SCH ×2 (09:16→13:44)
[2019-06-18] MEDS: SERTRALINE HCL 50 MG TABLET PO SCH (09:16)
[2019-06-18] MEDS: ATORVASTATIN CALCIUM 10 MG TABLET PO SCH (09:16)
[2019-06-18] MEDS: LORazepam 2 MG TABLET PO PRN (09:16)
[2019-06-18] MEDS: LISINOPRIL 5 MG TABLET PO SCH (09:16)
[2019-06-18] MEDS: DOCUSATE SODIUM 100 MG CAPSULE PO SCH (09:20)
[2019-06-18 12:21] LABS: GLUCOMETER DEV NAME(LOC) 3E.I 2; GLUCOSE,POINT OF CARE 131 MG/DL (70-110)
== END 2019-06-18 14:45 | disposition home or self-care (01) | DRG 885 ==
LOC: EMS 19:16 → 3EI 06-15 00:57
PROVIDERS: ADMIT Psychiatry & Neurology Psychiatry; ATTEND Psychiatry & Neurology Psychiatry
DX: F25.1 Schizoaffective disorder, depressive type (principal); E78.00 Pure hypercholesterolemia, unspecified; E11.9 Type 2 diabetes mellitus without complications; I10 Essential (primary) hypertension; Z87.891 Personal history of nicotine dependence; Z79.899 Other long term (current) drug therapy
CPT/HCPCS: 90686; 90732; G0480